=== PATIENT | male | born 1960 | race Caucasian/White ===

== ENCOUNTER 2017-03-23 05:33 | Emergency (ER) | payer OTHER ==
[2017-03-23 05:35] VITALS: BMI 31.3
[2017-03-23 05:51] VITALS: TEMP 98.1
[2017-03-23] MEDS ORDERED: Morphine 2 mg/ml ISec IVP STA (05:54)
--- NOTE | 2017-03-23 05:54 | ED PDOC ---
Arrival/HPI - General Chief Complaint: Back Pain Time Seen by Provider: 03/23/17 05:52 Historian: Patient - History of Present Illness Narrative History of Present Illness (Text): 03/23/17 05:52 Marisel Hinojosa is a 56 year old male, whose past medical history includes gastritis, who presents to the Emergency department complaining of right flank pain radiating to his abdomen for the past 10 days, worsening tonight. Patient also notes some constipation this morning. Patient states he was seen by his PMD for similar complaints yesterday and given prescriptions for outpatient imaging studies. Patient states pain worsened tonight and he came to the ER for further evaluation. Patient denies any fever, chills, chest pain, shortness of breath, nausea, vomiting, diarrhea, neck pain, headache, dizziness, or any other complaints. PMD: Dr. Tano Nina Time/Duration: > week (10 days) Symptom Onset: Gradual Symptom Course: Unchanged Activities at Onset: Light Context: Home Past Medical History - Provider Review Nursing Documentation Reviewed: Yes - Infectious Disease Hx of Infectious Diseases: None - Tetanus Immunization Tetanus Immunization: Unknown - Past Medical History Past Medical History: No Previous - Cardiac Hx Cardiac Disorders: No - Pulmonary Hx Respiratory Disorders: No - Neurological Hx Neurological Disorder: No - HEENT Hx HEENT Disorder: No - Renal Hx Renal Disorder: No - Endocrine/Metabolic Hx Endocrine Disorders: No - Hematological/Oncological Hx Blood Disorders: No - Integumentary Hx Dermatological Disorder: No - Musculoskeletal/Rheumatological Hx Back Pain: Yes - Gastrointestinal Hx Gastritis: Yes Hx Gastroesophageal Reflux: Yes - Genitourinary/Gynecological Hx Genitourinary Disorders: No - Psychiatric Hx Psychophysiologic Disorder: No Hx Substance Use: No - Surgical History Hx Tonsillectomy: Yes Other/Comment: Anal fisure - Anesthesia Hx Anesthesia: Yes Hx Anesthesia Reactions: No - Suicidal Assessment Feels Threatened In Home Enviroment: No Family/Social History - Physician Review Nursing Documentation Reviewed: Yes Family/Social History: Unknown Family HX Smoking Status: Never Smoked Hx Alcohol Use: No Hx Substance Use: No Hx Substance Use Treatment: No Allergies/Home Meds Allergies/Adverse Reactions: Allergies novalgine Allergy (Uncoded 03/23/17 05:52) ANAPHYLAXIS Home Medications: Home Meds Medication Instructions Recorded Confirmed Ibuprofen [Motrin] 600 mg PO PRN PRN 10/05/14 03/23/17 Omeprazole 40 mg PO DAILY 03/23/17 03/23/17 Review of Systems - Physician Review All systems were reviewed & negative as marked: Yes - Review of Systems Constitutional: Normal. absent: Fevers Eyes: Normal ENT: Normal Respiratory: Normal. absent: SOB, Cough Cardiovascular: Normal. absent: Chest Pain Gastrointestinal: Constipation. absent: Diarrhea, Nausea, Vomiting Genitourinary Male: absent: Dysuria, Frequency, Hematuria, Urinary Output Changes Musculoskeletal: Back Pain (+right lower back pain). absent: Neck Pain Skin: Normal. absent: Rash Neurological: Normal. absent: Headache, Dizziness Endocrine: Normal Hemo/Lymphatic: Normal Psychiatric: Normal Physical Exam Vital Signs Reviewed: Yes Vital Signs Temp Pulse Resp BP Pulse Ox 03/23/17 12:34 70 18 100/76 98 03/23/17 10:07 68 18 96/68 L 97 03/23/17 07:36 60 18 102/71 99 03/23/17 05:48 98.1 F 80 16 112/81 97 Temperature: Afebrile Blood Pressure: Normal Pulse: Regular Respiratory Rate: Normal Appearance: Positive for: Well-Appearing, Non-Toxic, Comfortable Pain Distress: None Mental Status: Positive for: Alert and Oriented X 3 - Systems Exam Head: Present: Atraumatic, Normocephalic Pupils: Present: PERRL Extroacular Muscles: Present: EOMI Conjunctiva: Present: Normal Mouth: Present: Moist Mucous Membranes Neck: Present: Normal Range of Motion Respiratory/Chest: Present: Clear to Auscultation, Good Air Exchange. No: Respiratory Distress, Accessory Muscle Use Cardiovascular: Present: Regular Rate and Rhythm, Normal S1, S2. No: Murmurs Abdomen: Present: Normal Bowel Sounds. No: Tenderness, Distention, Peritoneal Signs Back: Present: Normal Inspection Upper Extremity: Present: Normal Inspection. No: Cyanosis, Edema Lower Extremity: Present: Normal Inspection. No: Edema Neurological: Present: GCS=15, CN II-XII Intact, Speech Normal Skin: Present: Warm, Dry, Normal Color. No: Rashes Psychiatric: Present: Alert, Oriented x 3, Normal Insight, Normal Concentration Medical Decision Making ED Course and Treatment: 03/23/17 05:53 Impression: 56 year old male complaining of right flank pain radiating to his abdomen for 10 days. Differential Diagnosis included but are not limited to: renal colic vs. musculoskeletal pain Plan: -- CT Abdomen and Pelvis w/o contrast -- Labs -- Urinalysis -- IV fluids -- Zofran -- Morphine -- Reassess and disposition Progress Notes: - Lab Interpretations Lab Results: 03/23/17 06:00 03/23/17 06:00 Lab Results 03/23/17 08:00: Urine Color Yellow, Urine Appearance Clear, Urine pH 6.5, Ur Specific [place] 1.020, Urine Protein Negative, Urine Glucose (UA) Negative, Urine Ketones Negative, Urine Blood Negative, Urine Nitrate Negative, Urine Bilirubin Negative, Urine Urobilinogen 0.2, Ur Leukocyte Esterase Negative 03/23/17 06:00: Sodium 141, Potassium 4.3, Chloride 103, Carbon Dioxide 26, Anion Gap 16, BUN 19, Creatinine 1.1, Est GFR ( Amer) > 60, Est GFR (Non- Af Amer) > 60, Random Glucose 121 H, Calcium 8.9, Total Bilirubin 1.0, AST 24, ALT 49, Alkaline Phosphatase 82, Total Protein 7.0, Albumin 4.1, Globulin 2.9, Albumin/Globulin Ratio 1.4 03/23/17 06:00: WBC 3.6 L, RBC 4.95, Hgb 15.5, Hct 41.5 L, MCV 83.8, MCH 31.3, MCHC 37.3 H, RDW 12.2, Plt Count 76 L, MPV 8.9, Gran % 35.1 L, Lymph % (Auto) 51.9 H, [place] % (Auto) 8.3 H, Eos % (Auto) 4.1, Baso % (Auto) 0.6, Gran # 1.27 L , Lymph # 1.9, [place] # 0.3, Eos # 0.2, Baso # 0.02 - RAD Interpretation Radiology Orders: 03/23/17 05:53 ABD & PELVIS W/O PO OR IV CONT [CT] Stat 03/23/17 08:57 ABDOMEN COMPLETE [US] Stat - Medication Orders Current Medication Orders: Discontinued Medications Sodium Chloride (Sodium Chloride 0.9%) 1,000 mls @ 80 mls/hr IV .[id number] KASIE Last Admin: 03/23/17 06:10 Dose: 80 mls/hr eMAR Start Stop Document 03/23/17 06:10 JOL (Rec: 03/23/17 06:10 JOL [id number]) Intravenous Solution Start Date 03/23/17 Start Time 06:10 Morphine Sulfate (Morphine) 2 mg IVP STAT STA Stop: 03/23/17 05:55 Last Admin: 03/23/17 06:10 Dose: 2 mg MAR Pain Assessment Document 03/23/17 06:10 JOL (Rec: 03/23/17 06:11 JOL [id number]) Pain Reassessment Is this a pain reassessment? No Sleep Is patient sleeping during reassessment? No Presence of Pain Presence of Pain Yes Pain Scale Used Pain Scale Used Numeric Location Upper or Lower Lower Pain Location Body Site Back Description Intensity of Pain at present 7 Pain Behavior Restlessness Facial Grimacing Aggravating Factors ADL's Changing Position Alleviating Factors/Management Medication Techniques IVP Administration Document 03/23/17 06:10 JOL (Rec: 03/23/17 06:11 JOL [id number]) Charges for Administration # of IVP Administrations 1 Ondansetron HCl (Zofran Inj) 4 mg IVP STAT STA Stop: 03/23/17 05:56 Last Admin: 03/23/17 06:10 Dose: 4 mg IVP Administration Document 03/23/17 06:10 JOL (Rec: 03/23/17 06:10 JOL [id number]) Charges for Administration # of IVP Administrations 1 Tramadol HCl (Ultram) 50 mg PO STAT STA Stop: 03/23/17 11:24 Last Admin: 03/23/17 12:22 Dose: Not Given Non-Admin Reason: Patient Refused - Transfer of Care Patient signed out to Dr:: rhaat ct scan and dispo - Scribe Statement The provider has reviewed the documentation as recorded by the Lalo Weber Provider Scribe Attestation: All medical record entries made by the Scribe were at my direction and personally dictated by me. I have reviewed the chart and agree that the record accurately reflects my personal performance of the history, physical exam, medical decision making, and the department course for this patient. I have also personally directed, reviewed, and agree with the discharge instructions and disposition. Disposition/Present on Arrival - Present on Arrival Any Indicators Present on Arrival: No History of DVT/PE: No History of Uncontrolled Diabetes: No Urinary Catheter: No History of Decub. Ulcer: No History Surgical Site Infection Following: None - Disposition Have Diagnosis and Disposition been Completed?: Yes Diagnosis: Enlarged prostate, Abdominal pain Disposition: HOME/ ROUTINE Disposition Time: 07:00 Condition: GOOD Discharge Instructions (ExitCare): Abdominal Pain (ED), Back Pain (ED) Additional Instructions: Follow-up with Dr. Nina as directed, as well as with gastoenterologist and urologist. You have an enlarged prostate on your imaging studies. For any persistent or worsening pain, any rash, any chest pain or shortness of breath, any nausea or vomiting, any numbness or weakness, any bloody urine or stool, any difficulty urinating or moving bowels, any persistent or worsening of symptoms, get rechecked. Prescriptions: traMADol [Ultram] 50 mg PO BID PRN #10 tab PRN Reason: Pain, Severe (8-10) Referrals: Tim Nina MD [Family Provider] - Follow up with primary Yobany Purcell MD [Staff Provider] - Follow up with primary Forms: [employer] (Sami)
[2017-03-23] MEDS ORDERED: Sodium Chloride 0.9% 1,000 ML IV SCH ×2 (06:00)
[2017-03-23 06:20] LABS: BASO # 0.02 K/mm3 (0.0-2.0); BASO % 0.6 % (0.0-3.0); EOS # 0.2 (0.0-0.7); EOS % 4.1 % (1.5-5.0); GRAN # 1.27 (1.4-6.5); GRAN % 35.1 % (50.0-68.0); HEMATOCRIT 41.5 % (42.0-52.0); LYMPH # 1.9 (1.2-3.4); LYMPH % 51.9 % (22.0-35.0); MEAN CELL VOLUME 83.8 fl (80.0-105.0); MEAN CORPUSCULAR HEMOGLOBIN 31.3 pg (25.0-35.0); MEAN CORPUSCULAR HGB CONC 37.3 g/dl (31.0-37.0); MEAN PLATELET VOLUME 8.9 fl (7.0-11.0); MONO # 0.3 (0.1-0.6); MONO % 8.3 % (1.0-6.0); RED CELL DISTRIBUTION WIDTH 12.2 % (11.5-14.5); WHITE BLOOD COUNT 3.6 10^3/ul (4.5-11.0)
[2017-03-23 06:28] LABS: ALB/GLOB RATIO 1.4 (1.1-1.8); ALKALINE PHOSPHATASE 82 U/L (38-126); ALT/SGPT 49 U/L (7-56); AST/SGOT 24 U/L (17-59); BLOOD UREA NITROGEN 19 mg/dL (7-21); CALCIUM 8.9 mg/dL (8.4-10.5); CARBON DIOXIDE 26 mmol/L (21-33); CHLORIDE 103 mmol/L (95-110); GFR AFRICAN-AMERICAN > 60; GLUCOSE,RANDOM 121 mg/dL (70-110); POTASSIUM 4.3 mmol/L (3.6-5.0); SODIUM 141 mmol/L (132-148)
--- NOTE | 2017-03-23 07:57 | ED PDOC ---
Physical Exam Vital Signs Reviewed: Yes Vital Signs Temp Pulse Resp BP Pulse Ox 03/23/17 10:07 68 18 96/68 L 97 03/23/17 07:36 60 18 102/71 99 03/23/17 05:48 98.1 F 80 16 112/81 97 Temperature: Afebrile Blood Pressure: Normal Pulse: Regular Respiratory Rate: Normal Appearance: Positive for: Well-Appearing, Non-Toxic, Comfortable Pain Distress: None Mental Status: Positive for: Alert and Oriented X 3 Medical Decision Making ED Course and Treatment: 03/23/17 07:57 Case signed out to me by Dr. Alva. Pending CT abdomen and pelvis, reevaluation and final disposition. 03/23/17 08:44 CT Abdomen and Pelvis without intravenous contrast Creator : Cesar Delvalle MD FINDINGS: LOWER THORAX: Unremarkable. LIVER: Unremarkable. No gross lesion or ductal dilatation. GALLBLADDER AND BILE DUCTS: Unremarkable. PANCREAS: Unremarkable. No gross lesion or ductal dilatation. SPLEEN: Unremarkable. ADRENALS: Unremarkable. No mass. KIDNEYS AND URETERS: Unremarkable. No hydronephrosis. No solid mass. VASCULATURE: Unremarkable. No aortic aneurysm. BOWEL: Nonacute sigmoid diverticular changes appear mild. No obstruction. No gross mural thickening. APPENDIX: Unremarkable. Normal appendix. PERITONEUM: Unremarkable. No free fluid. No free air. LYMPH NODES: Unremarkable. No enlarged lymph nodes. BLADDER: Unremarkable. REPRODUCTIVE: Enlarged prostate gland noted. BONES: No acute fracture. IMPRESSION: Unremarkable non contrast enhanced CT of the abdomen and pelvis. No radiodense urolithiasis or obstructive uropathy bilaterally. Nonacute sigmoid diverticulosis. Enlarged prostate gland. 03/23/17 08:58 On reexamination, patient has mild right upper quadrant abdominal pain. No nausea or fever. CT scan report reviewed with patient. Limitations of this reviewed. Abdomen US ordered to further evaluate gallbladder. 03/23/17 11:30 Imaging studies and labs reviewed with patient and Dr. Nina. Patient with no peritoneal signs, no vesicular rash. Afebrile. CV stable. Plan to discharged with follow-up with PMD and GI. Follow-up plan reviewed with patient. 03/23/17 12:19 US abdomen- Creator : Allen Cuba MD Impression- Fatty infiltration of the liver. No evidence of cholelithiasis or cholecystitis. - Lab Interpretations Lab Results: 03/23/17 06:00 03/23/17 06:00 Lab Results 03/23/17 08:00: Urine Color Yellow, Urine Appearance Clear, Urine pH 6.5, Ur Specific [place] 1.020, Urine Protein Negative, Urine Glucose (UA) Negative, Urine Ketones Negative, Urine Blood Negative, Urine Nitrate Negative, Urine Bilirubin Negative, Urine Urobilinogen 0.2, Ur Leukocyte Esterase Negative 03/23/17 06:00: Sodium 141, Potassium 4.3, Chloride 103, Carbon Dioxide 26, Anion Gap 16, BUN 19, Creatinine 1.1, Est GFR ( Amer) > 60, Est GFR (Non- Af Amer) > 60, Random Glucose 121 H, Calcium 8.9, Total Bilirubin 1.0, AST 24, ALT 49, Alkaline Phosphatase 82, Total Protein 7.0, Albumin 4.1, Globulin 2.9, Albumin/Globulin Ratio 1.4 03/23/17 06:00: WBC 3.6 L, RBC 4.95, Hgb 15.5, Hct 41.5 L, MCV 83.8, MCH 31.3, MCHC 37.3 H, RDW 12.2, Plt Count 76 L, MPV 8.9, Gran % 35.1 L, Lymph % (Auto) 51.9 H, [place] % (Auto) 8.3 H, Eos % (Auto) 4.1, Baso % (Auto) 0.6, Gran # 1.27 L , Lymph # 1.9, [place] # 0.3, Eos # 0.2, Baso # 0.02 I have reviewed the lab results: Yes - RAD Interpretation Radiology Orders: 03/23/17 05:53 ABD & PELVIS W/O PO OR IV CONT [CT] Stat 03/23/17 08:57 ABDOMEN COMPLETE [US] Stat - Medication Orders Current Medication Orders: Sodium Chloride (Sodium Chloride 0.9%) 1,000 mls @ 80 mls/hr IV .[id number] KASIE Last Admin: 03/23/17 06:10 Dose: 80 mls/hr eMAR Start Stop Document 03/23/17 06:10 JOL (Rec: 03/23/17 06:10 JOL [id number]) Intravenous Solution Start Date 03/23/17 Start Time 06:10 Discontinued Medications Morphine Sulfate (Morphine) 2 mg IVP STAT STA Stop: 03/23/17 05:55 Last Admin: 03/23/17 06:10 Dose: 2 mg MAR Pain Assessment Document 03/23/17 06:10 JOL (Rec: 03/23/17 06:11 JOL [id number]) Pain Reassessment Is this a pain reassessment? No Sleep Is patient sleeping during reassessment? No Presence of Pain Presence of Pain Yes Pain Scale Used Pain Scale Used Numeric Location Upper or Lower Lower Pain Location Body Site Back Description Intensity of Pain at present 7 Pain Behavior Restlessness Facial Grimacing Aggravating Factors ADL's Changing Position Alleviating Factors/Management Medication Techniques IVP Administration Document 03/23/17 06:10 JOL (Rec: 03/23/17 06:11 JOL [id number]) Charges for Administration # of IVP Administrations 1 Ondansetron HCl (Zofran Inj) 4 mg IVP STAT STA Stop: 03/23/17 05:56 Last Admin: 03/23/17 06:10 Dose: 4 mg IVP Administration Document 03/23/17 06:10 JOL (Rec: 03/23/17 06:10 JOL [id number]) Charges for Administration # of IVP Administrations 1 Tramadol HCl (Ultram) 50 mg PO STAT STA Stop: 03/23/17 11:24 - Scribe Statement The provider has reviewed the documentation as recorded by the Lalo Patino Provider Scribe Attestation: All medical record entries made by the Scribe were at my direction and personally dictated by me. I have reviewed the chart and agree that the record accurately reflects my personal performance of the history, physical exam, medical decision making, and the department course for this patient. I have also personally directed, reviewed, and agree with the discharge instructions and disposition. Disposition/Present on Arrival - Present on Arrival Any Indicators Present on Arrival: No History of DVT/PE: No History of Uncontrolled Diabetes: No Urinary Catheter: No History of Decub. Ulcer: No History Surgical Site Infection Following: None - Disposition Have Diagnosis and Disposition been Completed?: Yes Diagnosis: Enlarged prostate, Abdominal pain Disposition: HOME/ ROUTINE Disposition Time: 11:31 Patient Plan: Discharge Patient Problems: Current Active Problems Problem Status Onset Abdominal pain Acute Enlarged prostate Acute Condition: GOOD Discharge Instructions (ExitCare): Abdominal Pain (ED), Back Pain (ED) Additional Instructions: Follow-up with Dr. Nina as directed, as well as with gastoenterologist and urologist. You have an enlarged prostate on your imaging studies. For any persistent or worsening pain, any rash, any chest pain or shortness of breath, any nausea or vomiting, any numbness or weakness, any bloody urine or stool, any difficulty urinating or moving bowels, any persistent or worsening of symptoms, get rechecked. Referrals: Tim Nina MD [Family Provider] - Follow up with primary Yobany Purcell MD [Staff Provider] - Follow up with primary Forms: [employer] (Uzbek)
[2017-03-23 08:34] LABS: PH,URINE 6.5 (4.7-8.0); URINE BILIRUBIN NEGATIVE (NEGATIVE); URINE BLOOD NEGATIVE (NEGATIVE); URINE GLUCOSE (UA) NEGATIVE (NEGATIVE); URINE KETONE NEGATIVE (NEGATIVE); URINE LEUKOCYTE ESTERASE NEGATIVE Leu/uL (NEGATIVE); URINE PROTEIN NEGATIVE mg/dL (<30 mg/dL); URINE UROBILINOGEN 0.2 E.U./dL (<1 E.U./dL)
[2017-03-23 08:35] LABS: URINE APPEARANCE CLEAR (CLEAR); URINE COLOR YELLOW (YELLOW)
--- NOTE | 2017-03-23 08:42 | CT ---
PROCEDURE: CT Abdomen and Pelvis without intravenous contrast HISTORY: rt flank pain COMPARISON: None. TECHNIQUE: Helical CT of the abdomen and pelvis was performed without oral or intravenous contrast as per referring physician request .. Contrast Dose: None Radiation dose: Total exam DLP = 879.95 mGy-cm. This CT exam was performed using one or more of the following dose reduction techniques: Automated exposure control, adjustment of the mA and/or kV according to patient size, and/or use of iterative reconstruction technique. FINDINGS: LOWER THORAX: Unremarkable. LIVER: Unremarkable. No gross lesion or ductal dilatation. GALLBLADDER AND BILE DUCTS: Unremarkable. PANCREAS: Unremarkable. No gross lesion or ductal dilatation. SPLEEN: Unremarkable. ADRENALS: Unremarkable. No mass. KIDNEYS AND URETERS: Unremarkable. No hydronephrosis. No solid mass. VASCULATURE: Unremarkable. No aortic aneurysm. BOWEL: Nonacute sigmoid diverticular changes appear mild. No obstruction. No gross mural thickening. APPENDIX: Unremarkable. Normal appendix. PERITONEUM: Unremarkable. No free fluid. No free air. LYMPH NODES: Unremarkable. No enlarged lymph nodes. BLADDER: Unremarkable. REPRODUCTIVE: Enlarged prostate gland noted. BONES: No acute fracture. OTHER FINDINGS: None. IMPRESSION: Unremarkable non contrast enhanced CT of the abdomen and pelvis. No radiodense urolithiasis or obstructive uropathy bilaterally. Nonacute sigmoid diverticulosis. Enlarged prostate gland.
[2017-03-23 09:07] VITALS: RESP 18
[2017-03-23 12:35] VITALS: BP 100/76; PULSE 70; O2SAT 98
--- NOTE | 2017-03-23 13:12 | US ---
HISTORY: upper abdominal pain COMPARISON: None. TECHNIQUE: Sonographic evaluation of the abdomen. FINDINGS: LIVER: Measures 17.0 cm. Diffusely increased echogenicity of the liver parenchyma. No mass. No intrahepatic bile duct dilatation. Normal hepatopetal portal venous flow is demonstrated. GALLBLADDER: Unremarkable. No gallstones. COMMON BILE DUCT: Measures 3 mm. No stones. No dilatation. PANCREAS: Unremarkable as visualized. No mass. No ductal dilatation. RIGHT KIDNEY: Measures 11.1cm. Normal echogenicity. No calculus, mass, or hydronephrosis. LEFT KIDNEY: Measures 12.6cm. Normal echogenicity. No calculus, mass, or hydronephrosis. SPLEEN: Normal in size and contour. No mass. AORTA: No aneurysmal dilatation. IVC: Unremarkable. OTHER FINDINGS: None. IMPRESSION: Fatty infiltration of the liver. No evidence of cholelithiasis or cholecystitis.
== END 2017-03-23 12:43 | disposition home or self-care (01) ==
LOC: ED 05:33
DX: N40.0 Benign prostatic hyperplasia without lower urinary tract symptoms (principal); R10.9 Unspecified abdominal pain; K21.9 Gastro-esophageal reflux disease without esophagitis
CPT/HCPCS: 74176; 76700; 80053; 81003; 85025; 96374; 96375; 99284; J2270; J2405; J7040

== ENCOUNTER 2018-08-12 00:34 | Emergency (ER) | payer MEDICAID, OTHER ==
[2018-08-12 00:35] VITALS: BMI 31.3
[2018-08-12] MEDS ORDERED: Sodium Chloride 0.9% 1,000 ML IV ONE (01:09)
--- NOTE | 2018-08-12 01:19 | ED PDOC ---
Arrival/HPI - General Chief Complaint: Abdominal Pain Time Seen by Provider: 08/12/18 00:41 Historian: Patient - History of Present Illness Narrative History of Present Illness (Text): 08/12/18 01:14 57 year old male, with past medical history of gastritis, presents to emergency department complaining of epigastric abdominal pain radiating up to throat and into chest since earlier today at 7 pm. Patient states this pain occurred after eating some tangerines, and he also states that he drank wine two hours ago which he normally does not do. Patient reports three episodes of non-dark, non- bilious vomiting with associated burning chest pain radiating from stomach to throat. Patient states he attempted to take pepcid but vomited it up. Pt endorses that his pain feels exactly alike his previous gastritis. Patient denies any shortness of breath, urinary complaints, rashes, trauma, falls, or any other complaints. He denies any crushing chest pain or pressure like pain to the chest. No pleuritic chest pain. No back pain. No fever, chills or night sweats. No urinary complaints. No dark or bloody stool. No constipation or diarrhea. 08/12/18 05:24 Time/Duration: 4-6 hours (7:00 ) Symptom Onset: Gradual Symptom Course: Unchanged Activities at Onset: Light Context: Home Past Medical History - Provider Review Nursing Documentation Reviewed: Yes - Infectious Disease Hx of Infectious Diseases: None - Tetanus Immunization Tetanus Immunization: Unknown - Past Medical History Past Medical History: No Previous - Cardiac Hx Cardiac Disorders: No - Pulmonary Hx Respiratory Disorders: No - Neurological Hx Neurological Disorder: No - HEENT Hx HEENT Disorder: No - Renal Hx Renal Disorder: No - Endocrine/Metabolic Hx Endocrine Disorders: No - Hematological/Oncological Hx Blood Disorders: No - Integumentary Hx Dermatological Disorder: No - Musculoskeletal/Rheumatological Hx Back Pain: Yes - Gastrointestinal Hx Gastritis: Yes Hx Gastroesophageal Reflux: Yes - Genitourinary/Gynecological Hx Genitourinary Disorders: No - Psychiatric Hx Psychophysiologic Disorder: No Hx Substance Use: No - Surgical History Hx Tonsillectomy: Yes Other/Comment: Anal fisure - Anesthesia Hx Anesthesia: Yes Hx Anesthesia Reactions: No - Suicidal Assessment Feels Threatened In Home Enviroment: No Family/Social History - Physician Review Nursing Documentation Reviewed: Yes Family/Social History: Unknown Family HX Smoking Status: Never Smoked Hx Alcohol Use: No Hx Substance Use: No Hx Substance Use Treatment: No Allergies/Home Meds Allergies/Adverse Reactions: Allergies novalgine Allergy (Uncoded 08/12/18 00:40) ANAPHYLAXIS Home Medications: Home Meds Medication Instructions Recorded Confirmed RX: Omeprazole 40 mg PO DAILY 03/23/17 08/12/18 Review of Systems - Physician Review All systems were reviewed & negative as marked: Yes - Review of Systems Constitutional: absent: Fatigue, Weight Change, Fevers, Night Sweats Eyes: absent: Vision Changes, Photophobia ENT: absent: Tinnitus Respiratory: absent: SOB, Cough Cardiovascular: Chest Pain (radiating from stomach to throat ). absent: Palpitations, Edema, Calf Pain, [place], Orthopnea, Syncope Gastrointestinal: Abdominal Pain (epigastric abdominal pain radiating up to throat into chest ), Nausea, Vomiting. absent: Stool Changes, Constipation, Diarrhea, Hematochezia, Hematemesis Genitourinary Male: absent: Dysuria, Frequency, Hematuria, Urinary Output Changes Musculoskeletal: absent: Arthralgias, Back Pain, Neck Pain Skin: absent: Rash Neurological: absent: Headache, Dizziness, Focal Weakness Physical Exam Vital Signs Reviewed: Yes Vital Signs Temp Pulse Resp BP Pulse Ox 08/12/18 00:35 97.6 F 61 18 133/55 L 98 Temperature: Afebrile Blood Pressure: Normal Pulse: Regular Respiratory Rate: Normal Appearance: Positive for: Well-Appearing, Non-Toxic, Comfortable Pain Distress: None Mental Status: Positive for: Alert and Oriented X 3 - Systems Exam Head: Present: Atraumatic, Normocephalic Pupils: Present: PERRL Extroacular Muscles: Present: EOMI Conjunctiva: Present: Normal Ears: Present: Normal, NORMAL TM Mouth: Present: Moist Mucous Membranes Pharnyx: Present: Normal. No: ERYTHEMA, EXUDATE, TONSILS ENLARGED, Peritonsilar Swelling, Uvular Deviation, Muffled/Hoarse Voice, Strider Neck: Present: Normal Range of Motion. No: Meningeal Signs, MIDLINE TENDERNESS Respiratory/Chest: Present: Clear to Auscultation, Good Air Exchange. No: Respiratory Distress, Accessory Muscle Use Cardiovascular: Present: Regular Rate and Rhythm, Normal S1, S2. No: Murmurs Abdomen: Present: Tenderness (epigastric tenderness ). No: Distention, Peritoneal Signs Back: Present: Normal Inspection. No: CVA Tenderness, Midline Tenderness Upper Extremity: Present: Normal Inspection, NORMAL PULSES, Neurovascularly Intact. No: Cyanosis, Edema Lower Extremity: Present: Normal Inspection, NORMAL PULSES, Neurovascularly Intact. No: Edema Neurological: Present: GCS=15, CN II-XII Intact, Speech Normal, Motor Func Grossly Intact Skin: Present: Warm, Dry, Normal Color. No: Rashes Psychiatric: Present: Alert, Oriented x 3, Normal Insight, Normal Concentration Medical Decision Making ED Course and Treatment: 08/12/18 01:20 Impression: 57 year old male presents to emergency department complaining of epigastric abdominal pain radiating up to throat and chest since 7 pm. Non-cardiac like chest pain. No RF for heart disease. Pt notes this pain feels exactly like previous gastritis pain. EKG unremarkable. Will seek x1 trop and imaging. Likely alcohol gastritis type pain. Plan: -- EKG -- Labs -- Chest X-ray -- Pepcid -- IV Fluids -- Zofran -- US Gallbladder -- Reassess and disposition Prior Visits: Notes and results from previous visits were reviewed. Progress Notes: 08/12/18 01:22 EKG: Ordered, reviewed, and independently interpreted the EKG. Rate : 62 BPM Rhythm : NSR Interpretation : No stemi 08/12/18 03:10 CT Abdomen/Pelvis, reviewed by radiologist: IMPRESSION: No acute intra-abdominal or pelvic abnormality. Electronically signed on Aug 12, 2018 3:08:30 AM EST by: Cesar Kay M.D., MBA Certified By ABR & CBC[employer] Fellowship Trained MRI and CT Specialist 08/12/18 03:34 US Gallbladder, reviewed by radiologist: IMPRESSION: Unremarkable right upper quadrant ultrasound. Electronically signed on Aug 12, 2018 3:54:01 AM EST by: Cesar Kay M.D., MBA Certified By ABR & CBC[employer] Fellowship Trained MRI and CT Specialist 08/12/18 04:34 pt notes improvment of symptoms, but pt is seeking maalox for the road. trop unremarkable, ekg unremarkable epigastric area non-ttp, I endorsed decreasing etoh usage. he is agreeable . Tolerated maalox well, no n/v, clear for d/c home with return indications and followup. Pt notes he has pepcid at home - RAD Interpretation Radiology Orders: 08/12/18 01:09 CHEST TWO VIEWS (PA/LAT) [RAD] Stat GALLBLADDER & COMMON DUCT [US] Stat - Medication Orders Current Medication Orders: Famotidine (Pepcid) 20 mg IVP STAT STA Stop: 08/12/18 01:11 Sodium Chloride (Sodium Chloride 0.9%) 1,000 mls @ 250 mls/hr IV .Q4H ONE Stop: 08/12/18 05:08 Ondansetron HCl (Zofran Inj) 4 mg IVP STAT STA Stop: 08/12/18 01:10 - Scribe Statement The provider has reviewed the documentation as recorded by the Scribe Bhavana Sanchez All medical record entries made by the Scribe were at my direction and personally dictated by me. I have reviewed the chart and agree that the record accurately reflects my personal performance of the history, physical exam, medical decision making, and the department course for this patient. I have also personally directed, reviewed, and agree with the discharge instructions and disposition. Disposition/Present on Arrival - Present on Arrival Any Indicators Present on Arrival: No History of DVT/PE: No History of Uncontrolled Diabetes: No Urinary Catheter: No History of Decub. Ulcer: No History Surgical Site Infection Following: None - Disposition Have Diagnosis and Disposition been Completed?: Yes Diagnosis: Gastritis Disposition: HOME/ ROUTINE Disposition Time: 04:35 Condition: GOOD Discharge Instructions (ExitCare): Gastritis (DC) Additional Instructions: ESTELLA GHOTRA, thank you for letting us take care of you today. Your provider was Franklin Serrano and you were treated for ABD PAIN. The emergency medical care you received today was directed at your acute symptoms. If you were prescribed any medication, please fill it and take as directed. It may take several days for your symptoms to resolve. Return to the Emergency Department if your symptoms worsen, do not improve, or if you have any other problems. Please contact your doctor or call one of the physicians/clinics you have been referred to that are listed on the Patient Visit Information form that is included in your discharge packet. Bring any paperwork you were given at discharge with you along with any medications you are taking to your follow up visit. Our treatment cannot replace ongoing medical care by a primary care provider outside of the emergency department. Thank you for allowing the [facility] team to be part of your care today. If you had an X-Ray or CT scan: A Radiologist will review the ED reading if any change in treatment is needed we will contact you. If you had a blood, urine, or wound culture: It will take several days for the results, if any change in treatment is needed we will contact you. If you had an STI test: It will take 48 hours for the results. Please call after 1 week if you have not heard back. Referrals: Tim Nina MD [Primary Care Provider] - Follow up with primary Rhett Darden MD [Staff Provider] - Follow up with primary Crystal Ojeda MD [Medical Doctor] - Follow up with primary [facility] [place] [Outside] - Follow up with primary [facility] [Outside] - Follow up with primary [facility] [place] [Outside] - Follow up with primary Forms: [facility] (Indonesian)
[2018-08-12 01:29] LABS: ALB/GLOB RATIO 1.4 (1.1-1.8); ALBUMIN 4.1 g/dL (3.0-4.8); ALT/SGPT 26 U/L (7-56); AST/SGOT 21 U/L (17-59); BLOOD UREA NITROGEN 19 mg/dL (7-21); CALCIUM 9.3 mg/dL (8.4-10.5); GFR NON-AFRICAN AMERICAN > 60; LIPASE 140 U/L (23-300)
[2018-08-12 01:46] LABS: TROPONIN I < 0.01 ng/mL
[2018-08-12 02:03] LABS: VENOUS BLOOD GAS BASE EXCESS 2.9 mmol/L (0.0-2.0); VENOUS BLOOD GAS PO2 149 mm/Hg (30-55); VENOUS BLOOD PH 7.35 (7.32-7.43)
[2018-08-12] MEDS ORDERED: Iohexol 350 MG/100 ML VIAL ONE (02:10)
[2018-08-12 02:13] LABS: BASO # 0.02 K/mm3 (0.0-2.0); BASO % 0.5 % (0.0-3.0); EOS # 0.1 (0.0-0.7); HEMOGLOBIN 14.7 g/dL (14.0-18.0); LYMPH # 2.1 (1.2-3.4); LYMPH % 51.2 % (22.0-35.0); MEAN CELL VOLUME 87.5 fl (80.0-105.0); MEAN CORPUSCULAR HEMOGLOBIN 31.2 pg (25.0-35.0); MEAN CORPUSCULAR HGB CONC 35.7 g/dl (31.0-37.0); MONO # 0.4 (0.1-0.6); MONO % 9.9 % (1.0-6.0); RBC 4.71 10^6/uL (3.5-6.1); RED CELL DISTRIBUTION WIDTH 12.5 % (11.5-14.5); WHITE BLOOD COUNT 4.1 10^3/uL (4.5-11.0)
[2018-08-12] MEDS ORDERED: Alum-Mag Hydrox-Simethicone Susp (30 mL) PO STA (04:33)
[2018-08-12 04:56] VITALS: BP 114/76; PULSE 71; RESP 16; TEMP 98.2; O2SAT 100
--- NOTE | 2018-08-12 08:44 | CARD ---
APPROVED REPORT Date of service: 08/12/2018 EKG Measurement Heart [id number] ID [id number] <Conclusion> Normal sinus rhythm Nonspecific ST abnormality Abnormal ECG
--- NOTE | 2018-08-12 12:55 | CT ---
Date of service: 08/12/2018 PROCEDURE: CT Abdomen and Pelvis.. HISTORY: Epigastric pain COMPARISON: Comparison made with prior study 03/23/2017 TECHNIQUE: Contiguous helical/transaxial images of the abdomen and pelvis. Oral contrast was administered. No IV contrast given. Coronal and Sagittal reformats generated. Radiation dose: Total exam DLP = 677.93 mGy-cm. This CT exam was performed using one or more of the following dose reduction techniques: Automated exposure control, adjustment of the mA and/or kV according to patient size, and/or use of iterative reconstruction technique. FINDINGS: LOWER THORAX: Mild passive/dependent type atelectasis both posterior lower lung tubbs. No acute consolidation. No evidence of effusion or basilar pneumothorax. Heart size within range of normal. No significant pericardial effusion. Suspect small hiatal hernia. LIVER: Liver is upper limits of normal measuring over 18 cm in CC dimension. Moderate fatty hepatic infiltration. No obvious hepatic masses collections or calcifications. Portal and splenic veins are opacified. GALLBLADDER AND BILE DUCTS: Unremarkable. PANCREAS: Pancreas appears slightly atrophic and fatty replaced. No obvious pancreatic mass collection or calcification. SPLEEN: Unremarkable. No splenomegaly. ADRENALS: Normal-appearing appendix. KIDNEYS AND URETERS: Kidneys demonstrate symmetric nephrograms. No evidence of nephrolithiasis or hydronephrosis. There is a small approximately 9.4 mm elliptical shaped low-attenuation arising from the lateral cortex mid to lower pole left kidney that probably represents hyperdense cyst. BLADDER: Urinary bladder is incompletely distended which in part accounts for thick-walled appearance. Muscular hypertrophy presumably contributes. Correlation with urinalysis recommended to exclude cystitis. REPRODUCTIVE: Prostate gland measures approximately 4.9 cm in transverse dimension. APPENDIX: . Normal appendix BOWEL: Evaluation of the bowel is somewhat limited due to the lack of oral contrast material. The stomach is partially distended with food debris liquid and air.. There appears to be some wall thickening of the distal stomach/pyloric region extending into the proximal duodenum which may be due to the peristalsing wave however the possibility of some localized inflammatory process not completely excluded. Clinical correlation recommended. Visualized loops of small bowel exhibit normal contour and caliber. No evidence of acute mechanical small bowel obstruction. Note however that there does appear to be some fecalized content within several loops of small bowel suggesting stasis. Clinical correlation recommended. Moderate amount of stool seen throughout the large bowel consistent with mild constipation PERITONEUM: Unremarkable. No fluid collection. No free air. Small fat containing umbilical hernia. Small fat containing bilateral inguinal hernias LYMPH NODES: Unremarkable. No enlarged lymph nodes. VASCULATURE: Unremarkable. No aortic aneurysm. No significant aortic atherosclerotic calcification or mural plaque present. BONES: Mild multilevel degenerative spondylosis of the lower thoracic and lumbar spine. OTHER FINDINGS: None. IMPRESSION: Of borderline/mild hepatomegaly with fatty infiltration. Findings consistent with mild fecal retention/constipation. Slight wall thickening of the distal stomach/pyloric region likely due to peristalsis however inflammatory process involving the distal gastric wall not excluded. Clinical correlation recommended. Note that this report was placed in PA review folder for follow up. For
--- NOTE | 2018-08-12 16:01 | RAD ---
Date of service: 08/12/2018 HISTORY: cp COMPARISON: Comparison chest dated 01/31/2015 TECHNIQUE: Chest PA and lateral FINDINGS: LUNGS: Minimal bibasilar atelectasis. PLEURA: No significant pleural effusion identified. No pneumothorax apparent. CARDIOVASCULAR: No aortic atherosclerotic calcification present. Normal cardiac size. No pulmonary vascular congestion. OSSEOUS STRUCTURES: No significant abnormalities. VISUALIZED UPPER ABDOMEN: Normal. OTHER FINDINGS: None. IMPRESSION: Minimal bibasilar atelectasis
--- NOTE | 2018-08-12 18:26 | US ---
Date of service: 08/12/2018 HISTORY: epigastric abd pain COMPARISON: Comparison made with prior ultrasound dated 03/15/2017. Correlation also made with CT scan abdomen pelvis obtained earlier same day TECHNIQUE: Sonographic evaluation of the right upper quadrant of the abdomen. FINDINGS: LIVER: Measures 18.1 cm in length. Smooth contour however increased echotexture consistent with fatty infiltration.. No mass. No intrahepatic bile duct dilatation. GALLBLADDER: Unremarkable. No gallstones. No pericholecystic fluid collections no reported sonographic Pugh sign. COMMON BILE DUCT: Measures 5.8 mm. No stones. No dilatation. PANCREAS: Pancreas not visualized due to arm body habitus and bowel gas RIGHT KIDNEY: Measures 11.6 x 4.7 x 5.1 cm in length. Normal echogenicity. No calculus, mass, or hydronephrosis. AORTA: No aneurysmal dilatation. IVC: Unremarkable. OTHER FINDINGS: None . IMPRESSION: Limited study as above. Liver is upper limits of normal/borderline enlarged. Moderate fatty hepatic infiltration.
== END 2018-08-12 04:56 | disposition home or self-care (01) ==
LOC: ED 00:34
DX: K29.70 Gastritis, unspecified, without bleeding (principal); K21.9 Gastro-esophageal reflux disease without esophagitis
CPT/HCPCS: 71046; 74177; 76705; 80053; 82803; 83690; 84484; 85025; 93005; 96374; 96375; 99284; J2405; J7030; Q9967

== ENCOUNTER 2018-08-12 09:29 | Inpatient (IN) | payer MEDICAID ==
[2018-08-12 09:29] VITALS: BMI 31.3
--- NOTE | 2018-08-12 09:54 | ED PDOC ---
Arrival/HPI - General Chief Complaint: Abdominal Pain Time Seen by Provider: 08/12/18 09:33 Historian: Patient - History of Present Illness Narrative History of Present Illness (Text): 08/12/18 09:51 57 year old male, whose past medical history includes gastritis, presents to the emergency department complaining of epigastric abdominal pain radiating to the back that began last night. Patient reports the pain is constant and is unable to sleep. Patient also reports episodes of vomiting yesterday, but denies any episodes of vomiting today. He reports he took Xanax to help him sleep with no relief. Patient reports the pain is similar to his pervious gastritis episode. Patient was discharged earlier with a negative CT of the Abdomen and pelvis and negative gallbladder Ultrasound. Patient reports nausea, but denies any fever, chills, chest pain, shortness of breath, diarrhea, urinary symptoms, back pain, neck pain, headache, dizziness, or any other complaints. PMD: Dr. Nina Symptom Onset: Gradual Symptom Course: Unchanged Activities at Onset: Light Context: Home Past Medical History - Provider Review Nursing Documentation Reviewed: Yes - Infectious Disease Hx of Infectious Diseases: None - Tetanus Immunization Tetanus Immunization: Unknown - Past Medical History Past Medical History: No Previous - Cardiac Hx Cardiac Disorders: No - Pulmonary Hx Respiratory Disorders: No - Neurological Hx Neurological Disorder: No - HEENT Hx HEENT Disorder: No - Renal Hx Renal Disorder: No - Endocrine/Metabolic Hx Endocrine Disorders: No - Hematological/Oncological Hx Blood Disorders: No - Integumentary Hx Dermatological Disorder: No - Musculoskeletal/Rheumatological Hx Musculoskeletal Disorders: Yes Hx Back Pain: Yes - Gastrointestinal Hx Gastrointestinal Disorders: Yes Hx Gastritis: Yes Hx Gastroesophageal Reflux: Yes - Genitourinary/Gynecological Hx Genitourinary Disorders: No - Psychiatric Hx Psychophysiologic Disorder: No Hx Substance Use: No - Surgical History Hx Tonsillectomy: Yes Other/Comment: Anal fisure - Anesthesia Hx Anesthesia: Yes Hx Anesthesia Reactions: No - Suicidal Assessment Feels Threatened In Home Enviroment: No Family/Social History - Physician Review Nursing Documentation Reviewed: Yes Family/Social History: No Known Family HX Smoking Status: Never Smoked Hx Alcohol Use: No Hx Substance Use: No Hx Substance Use Treatment: No Allergies/Home Meds Allergies/Adverse Reactions: Allergies novalgine Allergy (Uncoded 08/12/18 09:31) ANAPHYLAXIS Home Medications: Home Meds Medication Instructions Recorded Confirmed Omeprazole 40 mg PO DAILY 03/23/17 08/12/18 Review of Systems - Physician Review All systems were reviewed & negative as marked: Yes - Review of Systems Constitutional: absent: Fevers, Other (chills) Respiratory: absent: SOB Cardiovascular: absent: Chest Pain Gastrointestinal: Abdominal Pain, Nausea, Vomiting Genitourinary Male: absent: Dysuria, Frequency, Hematuria Musculoskeletal: Back Pain. absent: Neck Pain Neurological: absent: Headache, Dizziness Physical Exam Vital Signs Reviewed: Yes Vital Signs Temp Pulse Resp BP Pulse Ox 08/12/18 09:32 97.5 F L 68 16 103/65 97 Temperature: Afebrile Blood Pressure: Normal Pulse: Regular Respiratory Rate: Normal Appearance: Positive for: Well-Appearing, Non-Toxic, Comfortable Pain Distress: None Mental Status: Positive for: Alert and Oriented X 3 - Systems Exam Head: Present: Atraumatic, Normocephalic Pupils: Present: PERRL Extroacular Muscles: Present: EOMI Conjunctiva: Present: Normal Mouth: Present: Moist Mucous Membranes Neck: Present: Normal Range of Motion Respiratory/Chest: Present: Clear to Auscultation, Good Air Exchange. No: Respiratory Distress, Accessory Muscle Use Cardiovascular: Present: Regular Rate and Rhythm, Normal S1, S2. No: Murmurs Abdomen: Present: Tenderness (epigastric tenderness). No: Distention, Peritoneal Signs, Guarding Back: Present: Normal Inspection Upper Extremity: Present: Normal Inspection. No: Cyanosis, Edema Lower Extremity: Present: Normal Inspection. No: Edema Neurological: Present: GCS=15, CN II-XII Intact, Speech Normal Skin: Present: Warm, Dry, Normal Color. No: Rashes Psychiatric: Present: Alert, Oriented x 3, Normal Insight, Normal Concentration Medical Decision Making ED Course and Treatment: 08/12/18 09:51 Impression: 57 year old male presents complaining of epigastric abdominal pain secondary to his gastritis associated with nausea and episodes of vomiting yesterday. Differential Diagnosis included but are not limited to: Gastritis VS intractable pain Plan: -- Protonix, IV Fluids, Toradol -- Reassess and disposition Prior Visits: Notes and results from previous visits were reviewed. Progress Notes: EKG shows NSR at 71 BPM. Interpreted by me. 08/12/18 03:10 CT Abdomen/Pelvis, reviewed by radiologist: IMPRESSION: No acute intra-abdominal or pelvic abnormality. Electronically signed on Aug 12, 2018 3:08:30 AM EST by: Cesar Kay M.D., MBA Certified By ABR & CBCCT Fellowship Trained MRI and CT Specialist 08/12/18 03:34 US Gallbladder, reviewed by radiologist: IMPRESSION: Unremarkable right upper quadrant ultrasound. Electronically signed on Aug 12, 2018 3:54:01 AM EST by: Cesar Kay M.D., MBA Certified By ABR & CBCCT Fellowship Trained MRI and CT Specialist 08/12/18 10:[address] Nina who is aware and agrees with the plan. Accepts patient into his service. Requests GI Dr. Crocker and surgery Dr. Greer for consult. - Scribe Statement The provider has reviewed the documentation as recorded by the Lalo Levy Provider Scribe Attestation: All medical record entries made by the Scribe were at my direction and personally dictated by me. I have reviewed the chart and agree that the record accurately reflects my personal performance of the history, physical exam, medical decision making, and the department course for this patient. I have also personally directed, reviewed, and agree with the discharge instructions and disposition. Disposition/Present on Arrival - Present on Arrival Any Indicators Present on Arrival: No History of DVT/PE: No History of Uncontrolled Diabetes: No Urinary Catheter: No History of Decub. Ulcer: No History Surgical Site Infection Following: None - Disposition Have Diagnosis and Disposition been Completed?: Yes Diagnosis: Gastritis, Intractable abdominal pain Disposition Time: 10:03 Patient Plan: Observation Condition: FAIR
[2018-08-12] MEDS ORDERED: Sodium Chloride 0.9% 1,000 ML IV SCH ×2 (10:00→14:08)
--- NOTE | 2018-08-12 13:37 | CP.PCM.CON ---
History of Present Illness - History of Present Illness History of Present Illness: General Surgery Consult Re: intractable abdominal pain HPI: 57M presented to ED complaining of epigastric abdominal pain radiating to the back that began last night. Pain was constant and prevented him from sleeping. Pain was associated with multiple episodes of yellow NBNB emesis yesterday. He has a hx of gastritis for which he takes protonix multiple times a week. He was discharged earlier after CT abd/pelvis and GB ultrasound were without surgical pathology. He says this pain was similar to his gastritis pain but more severe. Currently, pt is sitting in bed comfortably and states the abdominal pain has improved. Denies F/C, N/V, change in bowel or bladder habits, SOB and admits to only mild residual pain in the epigastrium and LUQ on palpation. Pt states that he is ready to go home today. PMH: Gastritis, GERD, Back pain, Anal fissures PSH: Tonsillectomy (40 years ago), Anal fissures (25 years ago), Varicocele FH: Denies SH: No tobacco or drug use, rare EtOH use All: Novalgine allergy anaphylaxis Home Meds: Omeprazole 40mg PO daily, occasionally takes viagra and xanax Review of Systems - Review of Systems All systems: reviewed and no additional remarkable complaints except (as per HPI) Past Patient History - Infectious Disease Hx of Infectious Diseases: None - Tetanus Immunizations Tetanus Immunization: Unknown - Past Social History Smoking Status: Never Smoked - CARDIAC Hx Cardiac Disorders: No Hx Angina: No Hx Cardia Arrhythmia: No Hx Circulatory Problems: No Hx Congestive Heart Failure: No Hx Heart Murmur: No Hx Heart Transplant: No Hx Hypercholesterolemia: No Hx Hypertension: No Hx Internal Defibrillator: No Hx Mitral Valve Prolapse: No Hx Pacemaker: No Hx Peripheral Edema: No Hx Peripheral Vascular Disease: No - PULMONARY Hx Respiratory Disorders: No Hx Asthma: No Hx Bronchitis: No Hx Chronic Obstructive Pulmonary Disease (COPD): No Hx Emphysema: No Hx Pneumonia: No Hx Respiratory Aspiration: No Hx Respiratory Tract Infection: No Hx Sleep Apnea: No Hx Tuberculosis: No - NEUROLOGICAL Hx Neurological Disorder: No Hx Alzheimer's Disease: No HX Cerebrovascular Accident: No Hx Dementia: No Hx Dizziness: No Hx Meningitis: No Hx Migraine: No Hx Parkinson's Disease: No Hx Seizures: No Hx Transient Ischemic Attacks (TIA): No - HEENT Hx HEENT Problems: No Hx Blind: No Hx Cataracts: No Hx Deafness: No Hx Difficulty Chewing: No Hx Epistaxis: No Hx Glaucoma: No Hx Macular Degeneration: No - RENAL Hx Chronic Kidney Disease: No Hx Dialysis: No Hx Kidney Stones: No Hx Neurogenic Bladder: No Hx Pyelonephritis: No Hx Renal (Kidney) Cancer: No Hx Renal Failure: No - ENDOCRINE/METABOLIC Hx Endocrine Disorders: No Hx Adrenal Cancer: No Hx Diabetes Insipidus: No Hx Diabetes Mellitus Type 1: No Hx Diabetes Mellitus Type 2: No Hx Hyperthyroidism: No Hx Hypothyroidism: No Hx Systemic Lupus Erythematosus: No - HEMATOLOGICAL/ONCOLOGICAL Hx Blood Disorders: No Hx AIDS: No Hx Anemia: No Hx Cancer: No Hx Chemotherapy: No Hx Cirrhosis: No Hx Hemophilia: No Hx Hepatitis A: No Hx Hepatitis B: No Hx Hepatitis C: No Hx Human Immunodeficiency Virus (HIV): No Hx Metastesis: No Hx Shingles: No Hx Sickle Cell Disease: No Hx Unexplained Bleeding: No - INTEGUMENTARY Hx Dermatological Problems: No Hx Basil Cell: No Hx Eczema: No Hx Melanoma: No Hx Psoriasis: No Hx Squamous Cell: No - MUSCULOSKELETAL/RHEUMATOLOGICAL Hx Musculoskeletal Disorders: No Hx Arthritis: No Hx Back Pain: No Hx Degenerative Joint Disease: No Hx Falls: No Hx Fractures: No Hx Gout: No Hx Herniated Disk: No Hx Myasthenia Gravis: No Hx Osteoarthritis: No Hx Osteomyelitis: No Hx Osteoporosis: No Hx Rhabdomyolysis: No Hx Spinal Stenosis: No Hx Unsteady Gait: No - GASTROINTESTINAL Hx Gastrointestinal Disorders: Yes Hx Colostomy: No Hx Crohn's Disease: No Hx Diverticulitis: No Hx Gall Bladder Disease: No Hx Gastroesophageal Reflux: Yes Hx Ileostomy: No Hx Liver Failure: No Hx Pancreatitis: No HX Swallowing Problems: No Hx Ulcer: No - GENITOURINARY/GYNECOLOGICAL Hx Genitourinary Disorders: No Hx Hematuria: No Hx Incontinence: No Hx Prostate Problems: No Hx Sexually Transmitted Disorders: No Hx Urinary Tract Infection: No - PSYCHIATRIC Hx Psychophysiologic Disorder: No Hx Anxiety: Yes (alprazolam) Hx Bipolar Disorder: No Hx Depression: No Hx Emotional Abuse: No Hx Hallucinations: No Hx Panic Symptoms: No Hx Paranoia: No Hx Post Traumatic Stress Disorder: No Hx Psychosis: No Hx Physical Abuse: No Hx Schizophrenia: No Hx Sexual Abuse: No Hx Substance Use: No - SURGICAL HISTORY Hx Surgeries: Yes (tonsillectomy/ anal fissure (20 years ago)) Hx Amputation: No Hx Appendectomy: No Hx Cardiac Catheterization: No Hx Cholecystectomy: No Hx Coronary Stent: No Hx Gastric Bypass Surgery: No Hx Hysterectomy: No Hx Joint Replacement: No Hx Kidney Transplant: No Hx Liver Transplant: No Hx Mastectomy: No Hx Musculoskeletal Surgery: No Hx Open Heart Surgery: No Hx Orthopedic Surgery: No Hx Splenectomy: No Hx Valve Replacement: No - ANESTHESIA Hx Anesthesia: Yes Hx Anesthesia Reactions: No Meds Allergies/Adverse Reactions: Allergies Allergy/AdvReac Type Severity Reaction Status Date / Time novalgine Allergy ANAPHYLAXIS Uncoded 08/12/18 10:58 - Medications Medications: Current Medications Sodium Chloride (Sodium Chloride 0.9%) 1,000 mls @ 150 mls/hr IV .Q6H40M [facility] Last Admin: 08/12/18 10:22 Dose: 150 mls/hr Physical Exam - Constitutional Appears: Non-toxic, No Acute Distress - Head Exam Head Exam: ATRAUMATIC, NORMOCEPHALIC - Eye Exam Eye Exam: EOMI. absent: Scleral icterus - ENT Exam ENT Exam: Mucous Membranes Dry Additional comments: trachea midline - Respiratory Exam Respiratory Exam: NORMAL BREATHING PATTERN. absent: Respiratory Distress - GI/Abdominal Exam GI & Abdominal Exam: Soft, Tenderness (mild in epigastrum and LUQ). absent: Distended, Firm, Guarding, Mass, Rebound, Rigid - Rectal Exam Rectal Exam: Deferred - Extremities Exam Extremities exam: Positive for: full ROM. Negative for: pedal edema - Back Exam Back exam: absent: CVA tenderness (L), CVA tenderness (R) - Neurological Exam Neurological exam: Alert, Oriented x3 - Psychiatric Exam Psychiatric exam: Normal Affect, Normal Mood - Skin Skin Exam: Dry, Warm Results - Vital Signs Recent Vital Signs: Last Vital Signs Temp 97.9 F 08/12/18 09:59 Pulse 73 08/12/18 09:59 Resp 16 08/12/18 11:34 BP 103/87 08/12/18 09:59 Pulse Ox 98 08/12/18 09:59 - Labs Labs: Laboratory Results - last 24 hr 08/12/18 11:00 POC Glucose (mg/dL) 206 H - Imaging and Cardiology CT scan - abdomen Status: Image reviewed by me, Report reviewed by me US - abdomen Status: Image reviewed by me, Report reviewed by me Assessment & Plan - Assessment and Plan (Free Text) Assessment: 57M with gastritis vs gastroenteritis Plan: Pain, nausea, emesis all resolving. Imaging negative for surgical pathology. No plan for surgical intervention at this time. Follow up GI recs. Will D/W Dr. Percy Manriquez PGY4
[2018-08-12] MEDS ORDERED: Oxycodone/Acetaminophen 5/325 mg Tab PO PRN (13:42)
--- NOTE | 2018-08-12 15:52 | PCM.RRT ---
STUDIO MANAGER Nurse Assessment - Situation Date: 08/12/18 Time STUDIO MANAGER was called: 15:42 (STUDIO MANAGER) STUDIO MANAGER Responder Arrival Time: 15:41 STUDIO MANAGER Location:: [address] [place] [address] Room Number: 573-1 STUDIO MANAGER Reason for Call: Chest Pain STUDIO MANAGER Called By: Physician - Respiratory Oxygen Delivery Method: Nasal Cannula @L/min Oxygen Flow Rate: 2 - Stat Labs Ordered STUDIO MANAGER Stat Labs Ordered: CBC, BMP, PT/PTT, TROPONIN CPR started during STUDIO MANAGER?: No - Vital Signs Vital Sign: HR 69, 113/75, T98.8, 97% 2L - Recommendations 5) STUDIO MANAGER Level of Care Recommendations: Transfer to Telemetry Notifications: Attending Physician, Consultations, Family or Designated Caregiver I.Reason for STUDIO MANAGER - A) Acute Change in Patient: Subjective: Mr Hinojosa, 57M, with no sig cardiac hx, gastritis, anal fissure, questionable ITP (used to see Dr Goss in the past) c/o epigastric abdominal pain radiating to the back that began last night. As I interview pt just now, his pain 3/10 is pressure like, mid-substernal, with radiation to the back, associated with nausea and vomiting. troponin jumps from 0.01 to 3.14. Family by bedside - Neurological Status (Select all that apply): Alert, Responsive, Oriented, Verbal, Follows Commands - Respiratory Oxygen Delivery Method: Nasal Cannula @L/min - Constitutional Appears: No Acute Distress - Head Head Exam: ATRAUMATIC, NORMAL INSPECTION, NORMOCEPHALIC - Eyes Eye Exam: EOMI, Normal appearance, PERRL. absent: Scleral icterus - Respiratory Exam Respiratory Exam: Clear to Ausculation Bilateral, NORMAL BREATHING PATTERN. absent: Rhonchi, Wheezes - Cardiovascular Exam Cardiovascular Exam: REGULAR RHYTHM, +S1, +S2. absent: Murmur - GI/Abdominal Exam GI & Abdominal Exam: Soft, Normal Bowel Sounds. absent: Guarding, Rigid, Tenderness - Neurological Exam Neurological Exam: Alert, Awake, CN II-XII Intact, Oriented x3 - Extremities Exam Extremities Exam: Full ROM, Normal Capillary Refill Plan - Assessment of Findings&Treatment Plan Mr Hinojosa, 57M, with no sig cardiac hx, gastritis, anal fissure, questionable ITP (used to see Dr Goss in the past) c/o epigastric abdominal pain radiating to the back that began last night. As I interview pt just now, his pain is pressure like, mid-substernal, with radiation to the back, associated with nausea and vomiting. troponin jumps from 0.01 to 3.14. EKG did not shows ST elevation NSTEMI Thrombocytopenia, plt 70-80 - upgrade to tele - ASA, heparin 5000 sc x 1, protonix; coreg, lipitor per cardio - No heparin gtt due to low plt - GI aware of cath plan. Dr Crocker asked to add miralax - Dr Goss recommends to transfuse 1u of single donor platelet prior to tomorrow's cath - Dr Nina asked to put 1 inch nitro paste - continue to trend trops, serial EKG. - trend labs and replete electrolyte as needed - lipid panel, A1C, Tsh/free t4 - echo - Primary care doc, Dr Nina, and family notified
[2018-08-12 15:58] LABS: BASO # 0.01 K/mm3 (0.0-2.0); BASO % 0.1 % (0.0-3.0); EOS % 0.3 % (1.5-5.0); HEMOGLOBIN 14.3 g/dL (14.0-18.0); LYMPH # 2.2 (1.2-3.4); LYMPH % 32.7 % (22.0-35.0); MEAN CELL VOLUME 86.6 fl (80.0-105.0); MEAN CORPUSCULAR HEMOGLOBIN 31.4 pg (25.0-35.0); MEAN CORPUSCULAR HGB CONC 36.2 g/dl (31.0-37.0); MEAN PLATELET VOLUME 9.3 fl (7.0-11.0); MONO # 0.6 (0.1-0.6); MONO % 8.4 % (1.0-6.0); RBC 4.56 10^6/uL (3.5-6.1); RED CELL DISTRIBUTION WIDTH 12.5 % (11.5-14.5); WHITE BLOOD COUNT 6.8 10^3/uL (4.5-11.0)
[2018-08-12 16:09] LABS: INR 1.14; PARTIAL THROMBOPLASTIN TIME 26.1 Seconds (26.9-38.3); PROTHROMBIN TIME 12.6 SECONDS (9.4-12.5)
--- NOTE | 2018-08-12 16:14 | RAD ---
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 CARDIOVASCULAR: Minimal aortic atherosclerotic calcification present. Normal cardiac size. No pulmonary vascular congestion. OSSEOUS STRUCTURES: No significant abnormalities. VISUALIZED UPPER ABDOMEN: Normal. OTHER FINDINGS: None. IMPRESSION: Minimal bibasilar atelectasis
--- NOTE | 2018-08-12 16:18 | CARD ---
APPROVED REPORT Date of service: 08/12/2018 EKG Measurement Heart [id number] <Conclusion> Normal sinus rhythm with sinus arrhythmia Normal ECG
[2018-08-12 16:20] LABS: ALB/GLOB RATIO 1.4 (1.1-1.8); ALBUMIN 4.4 g/dL (3.0-4.8); ALT/SGPT 39 U/L (7-56); AST/SGOT 78 U/L (17-59); BLOOD UREA NITROGEN 16 mg/dL (7-21); CALCIUM 9.3 mg/dL (8.4-10.5); GFR NON-AFRICAN AMERICAN > 60
[2018-08-12] MEDS ORDERED: Potassium Chloride 40 mEq/30 ml LIQ UD PO ONE (16:31)
--- NOTE | 2018-08-12 16:34 | CP.PCM.PCO ---
Physician Communication Note - Physician Communication Note Physician Communication Note: follow cardiology recommendations for possible anticoagulation
--- NOTE | 2018-08-12 16:39 | CP.PCM.PN ---
Subjective - Date & Time of Evaluation Date of Evaluation: 08/12/18 Time of Evaluation: 16:37 - Subjective Subjective: Physician Communication Note for Gastroenterology Patient with rapid response for chest pain and elevated troponin. Benefits outweigh risks for possible anticoagulation based on cardiology recommendation with normal hemoglobin/hematocrit, no signs of GI bleed, and chronic thrombocytopenia at baseline on record review suspicious for underlying ITP which requires further workup if not completed outpatient. Follow up cardiology evaluation and recommendations. Objective - Vital Signs/Intake and Output Vital Signs (last 24 hours): Temp Pulse Resp BP Pulse Ox 97.9 F 72 20 110/78 98 08/12/18 14:00 08/12/18 16:32 08/12/18 14:00 08/12/18 16:32 08/12/18 14:00 - Medications Medications: Current Medications Aspirin (Aspirin Chewable) 81 mg PO DAILY [facility] Last Admin: 08/12/18 16:33 Dose: Not Given Atorvastatin Calcium (Lipitor) 20 mg PO DIN [facility] Last Admin: 08/12/18 16:32 Dose: 20 mg Carvedilol (Coreg) 3.125 mg PO BID [facility] Last Admin: 08/12/18 16:32 Dose: 3.125 mg Famotidine (Pepcid) 20 mg IVP BID [facility] Last Admin: 08/12/18 16:32 Dose: 20 mg Sodium Chloride (Sodium Chloride 0.9%) 1,000 mls @ 100 mls/hr IV .Q10H [facility] Last Admin: 08/12/18 16:34 Dose: 100 mls/hr Nitroglycerin (Nitrostat Sl Tab) 0.4 mg SL ONCE ONE Stop: 08/12/18 16:31 Ondansetron HCl (Zofran Inj) 4 mg IVP Q6H PRN PRN Reason: Nausea/Vomiting Last Admin: 08/12/18 16:26 Dose: 4 mg Oxycodone/Acetaminophen (Percocet 5/325 Mg Tab) 1 tab PO Q4H PRN PRN Reason: Pain, moderate (4-7) Stop: 08/15/18 13:43 Pantoprazole Sodium (Protonix Inj) 40 mg IVP DAILY [facility] Potassium Chloride (Potassium Chloride Oral Soln) 40 meq PO ONCE ONE Stop: 08/12/18 16:32 - Labs Labs: 08/12/18 15:50 08/12/18 15:50 PT 12.6 SECONDS (9.4-12.5) H 08/12/18 15:50 INR 1.14 08/12/18 15:50 APTT 26.1 Seconds (26.9-38.3) L 08/12/18 15:50
[2018-08-12] MEDS: Nitroglycerin 2% Ointment Foilpak UD TOP SCH ×2 (16:47→17:38)
[2018-08-12] MEDS: POLYETHYLENE GLYCOL 3350 17 GM/Dose PACKET PO SCH (18:17)
[2018-08-12 18:44] LABS: CK MB% 6.9 % (2.5-3.0); CK-MB 43.2 ng/mL (0.0-3.6); TROPONIN I 8.96 ng/mL
[2018-08-12] MEDS ORDERED: Enoxaparin 40 mg Syringe SC STA (19:27)
[2018-08-12] MEDS ORDERED: Potassium Chloride 20 mEq ER Tab PO ONE (21:05)
--- NOTE | 2018-08-12 22:07 | CP.PCM.PN ---
Subjective - Date & Time of Evaluation Date of Evaluation: 08/12/18 Time of Evaluation: 21:59 - Subjective Subjective: It was requested to co-sign order for plateletpheresis. Patient was seen at bed side .He complains of nausea. Has no other complaints. Discussed with primary nurse of patient,Naa. As per whom,patient is going for cardiac cath and platelet has to be infused one hour prior to cardiac cat which is going to be scheduled somewhere about 10:30 to 11 am. Today's events noted. Medical record was reviewed. This 57 year old male was admitted with epigastric pain radiating to back,vomiting, was found later on to have elevated troponin and is for cardiac cath in AM. Has PMH of GERD, back pain. Objective - Vital Signs/Intake and Output Vital Signs (last 24 hours): Temp Pulse Resp BP Pulse Ox 99 F 74 22 113/78 99 08/12/18 18:00 08/12/18 18:00 08/12/18 18:00 08/12/18 18:00 08/12/18 18:00 Intake and Output: 08/12/18 08/13/18 18:59 06:59 Intake Total 0 Output Total 0 Balance 0 - Medications Medications: Current Medications Aspirin (Aspirin Chewable) 81 mg PO DAILY [facility] Last Admin: 08/12/18 16:33 Dose: Not Given Atorvastatin Calcium (Lipitor) 20 mg PO DIN [facility] Last Admin: 08/12/18 16:32 Dose: 20 mg Carvedilol (Coreg) 3.125 mg PO BID [facility] Last Admin: 08/12/18 17:38 Dose: Not Given Famotidine (Pepcid) 20 mg IVP BID [facility] Last Admin: 08/12/18 17:38 Dose: Not Given Sodium Chloride (Sodium Chloride 0.9%) 1,000 mls @ 100 mls/hr IV .Q10H [facility] Last Admin: 08/12/18 16:34 Dose: 100 mls/hr Nitroglycerin (Nitro-Bid 2% Oint) 1 ea TOP BID [facility] Last Admin: 08/12/18 17:38 Dose: Not Given Ondansetron HCl (Zofran Inj) 4 mg IVP Q6H PRN PRN Reason: Nausea/Vomiting Last Admin: 08/12/18 16:26 Dose: 4 mg Oxycodone/Acetaminophen (Percocet 5/325 Mg Tab) 1 tab PO Q4H PRN PRN Reason: Pain, moderate (4-7) Stop: 08/15/18 13:43 Pantoprazole Sodium (Protonix Inj) 40 mg IVP DAILY [facility] Polyethylene Glycol (Miralax) 17 gm PO BID [facility] Last Admin: 08/12/18 18:17 Dose: Not Given - Labs Labs: 08/12/18 15:50 08/12/18 15:50 PT 12.6 SECONDS (9.4-12.5) H 08/12/18 15:50 INR 1.14 08/12/18 15:50 APTT 26.1 Seconds (26.9-38.3) L 08/12/18 15:50 - Constitutional Appears: Well, No Acute Distress - Head Exam Head Exam: ATRAUMATIC, NORMAL INSPECTION, NORMOCEPHALIC - Eye Exam Eye Exam: Normal appearance - ENT Exam ENT Exam: Normal External Ear Exam - Neck Exam Neck Exam: Normal Inspection - Respiratory Exam Respiratory Exam: NORMAL BREATHING PATTERN - Cardiovascular Exam Cardiovascular Exam: absent: JVD - GI/Abdominal Exam GI & Abdominal Exam: absent: Distended - Rectal Exam Rectal Exam: Deferred - Exam Additional comments: Deferred. - Extremities Exam Extremities Exam: Normal Inspection - Back Exam Back Exam: NORMAL INSPECTION - Neurological Exam Neurological Exam: Alert, Awake, Oriented x3 - Psychiatric Exam Psychiatric exam: Normal Affect, Normal Mood - Skin Skin Exam: Normal Color Assessment and Plan - Assessment and Plan (Free Text) Assessment: NSTEMI. Gastritis. GERD. Obesity. History of back pain. Elevated troponin. Plan: Zofran 4 mg IV x 1. Platelet transfusion will be ordered one hour befroe procedure of cardiac catheterization. Continue present management.
--- NOTE | 2018-08-12 22:08 | HP ---
DATE OF EXAM: 08/12/2018 CHIEF COMPLAINT: Patient came to the hospital because of epigastric pain radiates to his chest. 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 HISTORY OF PRESENT ILLNESS: This is a 57-year-old male with history of thrombocytopenia and history of H. pylori that was treated in the past and gastritis. The patient also had been complaining of chest pain and epigastric pain; however, he was so good for a year or more or at least a year with the medication for his gastritis; however, at this time, he developed some epigastric discomfort that radiates to his upper chest. The pain stayed for a while, for at least 30 minutes or more, then it comes and goes. Patient came to the Emergency Room twice. The second time he complained similar symptoms; however, his workup in the previous one was negative including troponin and CT abdomen and pelvis. A gallbladder ultrasound was ordered, it was still pending from previous admissions. This time, patient came in with the same complaint and was admitted for observations. PAST MEDICAL HISTORY: As I mentioned, H. Pylori gastritis, thrombocytopenia, seen by Hematology as outpatient Dr. Goss. ALLERGIES: HE IS ALLERGIC TO , WHICH IS NOT USED IN [place]. MEDICATIONS: He takes Xanax p.r.n. and he takes Prilosec 40 mg one a day. SOCIAL HISTORY: Nonsmoker, nondrinker except social. Lives with his and children. 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 REVIEW OF SYSTEMS: As in the present illness, otherwise negative. PHYSICAL EXAMINATION GENERAL: Patient is comfortable, does not seem to be in distress on floor. No respiratory distress. Does not seem to be in pain at this time. VITAL SIGNS: His temperature is 97.9, heart rate is 73, blood pressure is 108/73, respiration 20, saturating 98%. HEAD AND NECK: Normal. No JVD. No thyromegaly. CHEST: Clear bilateral. CARDIAC: First sound and second sound normal. No murmur, rub or gallop. ABDOMEN: Soft and nontender. EXTREMITIES: No edema. NEUROLOGIC: Normal. LABORATORY DATA: The patient has laboratory studies, which include white count 6.8, hemoglobin 14.3, hematocrit 39.5, and platelets 74 and on a repeat is 87. Chemistry, we will get the previous chemistry, which was done on the previous admissions. Chemistry was within normal range with previous sodium 139, potassium 3.7, chloride 103, bicarb 29, BUN 19, creatinine 0.9. Blood sugar 177. Calcium 9.3, total bilirubin 0.4. Liver function test is normal and troponin initial one was negative and his lipase was normal. Patient had some blood gas, PO2 is 149, normal and PCO2 54, bicarb 29, and pH 7.35, lactate was a little bit high at 2.8. Also EKG was reported, regular sinus rhythm, negative murmur. CT abdomen and pelvis done and was read as negative. There is no acute finding and it was performed with IV contrast and it was negative, it showed some thickening of the distal gastric pyloric region, otherwise negative. A chest x-ray was reported as negative. No active lung disease, maybe minimal basilar atelectasis. IMPRESSION AND PLAN: This is a 57-year-old male, history of gastritis with low platelets in the past, being seen, treated and his platelets runs normal in the 70-80s. Came in, complaining of epigastric pain that radiates to his chest. The pain stays for maybe a half hour or more when it comes back. He came again to the ER with similar complaint and troponin was negative. Patient was admitted for observations. I did reevaluate the patient and I know the patient does not have any tenderness in epigastric area. These symptoms could be something to do with the cardiac, so we repeated troponin, which came back positive and also Cardiology consult was put in for evaluation of his epigastric discomfort; however, in the presence of troponin, normal EKG, the conclusion that is this is acute non-ST elevation myocardial infarction. We gave aspirin, beta blockers. Dr. Vera covering Dr. Clarke already knows about the case. We will transfer the patient to Telemetry and we will continue followup on that. Tim Nina MD
[2018-08-13 00:55] LABS: CK MB% 5.5 % (2.5-3.0)
[2018-08-13 01:59] LABS: TROPONIN I 21.1 ng/mL
[2018-08-13] MEDS ORDERED: DOPamine 400mg/250ml D5W 400 MG/250 ML BAG IV PRN (04:39)
[2018-08-13] MEDS ORDERED: Iodixanol 320 MG/ML 100 ML BOTTLE IV ONE (04:54)
--- NOTE | 2018-08-13 05:22 | CP.PCM.CON ---
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 During the hospital stay he was found to develop elevated troponins and was diagnosed with an NSTEMI. Patients later complained of weakness, developed hypotension, and ICU transfer was requested. Patient seen and examined at bedside. Patient admits to feeling weak. Also admits to baseline abdominal pain, nausea, and vomiting. Denies fever, chills, dizziness, palpitations, chest pain, SOB, diarrhea, constipation, and urinary symptoms. 12 point ROS negative except as indicated in the HPI PMHx: Gastritis, GERD, Back pain, Anal fissures PSHx: Tonsillectomy (40 years ago), Anal fissures (25 years ago), Varicocele Allergies: Novalgine allergy anaphylaxis FHx: Denies SHx: No tobacco or drug use, rare EtOH use Home Meds: Omeprazole 40mg PO daily, occasionally takes viagra and xanax Physical Examination: - Constitutional Appears: Non-toxic, No Acute Distress - Head Exam Head Exam: ATRAUMATIC, NORMOCEPHALIC - Eye Exam Eye Exam: EOMI - ENT Exam ENT Exam: Mucous Membranes Moist - Neck Exam Neck Exam: Full ROM, Normal Inspection - Cardiac Exam Cardiac Exam: +S1, +S2, RRR, no murmurs, no gallops, no rubs - Respiratory Exam Respiratory Exam: normal breathing pattern, absent: Accessory Muscle Use, Respiratory Distress - GI/Abdominal Exam GI & Abdominal Exam: Soft. 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 During his hospital stay he was found to develop elevated troponins. Repeat EKG 08/13/18 revealed NSR with no defining ST segment and/or T wave changes. N/V continued. He developed hypotension and is being transferred to the ICU for further management. NSTEMI, Cardiogenic Shock - given ASA 325mg PO x 1, heparin 5000 units IV x 1, plavix 300mg PO x 1, lovenox 40mg subq x 1 on telemetry during/subsequently after [facility] on 08/12/2018 - hold coreg due to hypotension - continue Lipitor 20mg PO QHS - started on dopamine 5mcg/kg/min, goal MAP>65 - lipid panel, A1C, Tsh/free t4 ordered and pending - echocardiogram ordered and pending - cardiology consulted (Dr. 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 Crocker)- appreciate recommendations Prophylaxis - DVT- on heparin drip - GI- PPI and famotidine Patient case discussed with and plan approved by attending physician, Dr. Hartley. Past Patient History - Infectious Disease Hx of Infectious Diseases: None - Tetanus Immunizations Tetanus Immunization: Unknown - Past Social History Smoking Status: Never Smoked - CARDIAC Hx Cardiac Disorders: No Hx Angina: No Hx Cardia Arrhythmia: No Hx Circulatory Problems: No Hx Congestive Heart Failure: No Hx Heart Murmur: No Hx Heart Transplant: No Hx Hypercholesterolemia: No Hx Hypertension: No Hx Internal Defibrillator: No Hx Mitral Valve Prolapse: No Hx Pacemaker: No Hx Peripheral Edema: No Hx Peripheral Vascular Disease: No - PULMONARY Hx Respiratory Disorders: No Hx Asthma: No Hx Bronchitis: No Hx Chronic Obstructive Pulmonary Disease (COPD): No Hx Emphysema: No Hx Pneumonia: No Hx Respiratory Aspiration: No Hx Respiratory Tract Infection: No Hx Sleep Apnea: No Hx Tuberculosis: No - NEUROLOGICAL Hx Neurological Disorder: No Hx Alzheimer's Disease: No HX Cerebrovascular Accident: No Hx Dementia: No Hx Dizziness: No Hx Meningitis: No Hx Migraine: No Hx Parkinson's Disease: No Hx Seizures: No Hx Transient Ischemic Attacks (TIA): No - HEENT Hx HEENT Problems: No Hx Blind: No Hx Cataracts: No Hx Deafness: No Hx Difficulty Chewing: No Hx Epistaxis: No Hx Glaucoma: No Hx Macular Degeneration: No - RENAL Hx Chronic Kidney Disease: No Hx Dialysis: No Hx Kidney Stones: No Hx Neurogenic Bladder: No Hx Pyelonephritis: No Hx Renal (Kidney) Cancer: No Hx Renal Failure: No - ENDOCRINE/METABOLIC Hx Endocrine Disorders: No Hx Adrenal Cancer: No Hx Diabetes Insipidus: No Hx Diabetes Mellitus Type 1: No Hx Diabetes Mellitus Type 2: No Hx Hyperthyroidism: No Hx Hypothyroidism: No Hx Systemic Lupus Erythematosus: No - HEMATOLOGICAL/ONCOLOGICAL Hx Blood Disorders: No Hx AIDS: No Hx Anemia: No Hx Cancer: No Hx Chemotherapy: No Hx Cirrhosis: No Hx Hemophilia: No Hx Hepatitis A: No Hx Hepatitis B: No Hx Hepatitis C: No Hx Human Immunodeficiency Virus (HIV): No Hx Metastesis: No Hx Shingles: No Hx Sickle Cell Disease: No Hx Unexplained Bleeding: No - INTEGUMENTARY Hx Dermatological Problems: No Hx Basil Cell: No Hx Eczema: No Hx Melanoma: No Hx Psoriasis: No Hx Squamous Cell: No - MUSCULOSKELETAL/RHEUMATOLOGICAL Hx Musculoskeletal Disorders: No Hx Arthritis: No Hx Back Pain: No Hx Degenerative Joint Disease: No Hx Falls: No Hx Fractures: No Hx Gout: No Hx Herniated Disk: No Hx Myasthenia Gravis: No Hx Osteoarthritis: No Hx Osteomyelitis: No Hx Osteoporosis: No Hx Rhabdomyolysis: No Hx Spinal Stenosis: No Hx Unsteady Gait: No - GASTROINTESTINAL Hx Gastrointestinal Disorders: Yes Hx Colostomy: No Hx Crohn's Disease: No Hx Diverticulitis: No Hx Gall Bladder Disease: No Hx Gastroesophageal Reflux: Yes Hx Ileostomy: No Hx Liver Failure: No Hx Pancreatitis: No HX Swallowing Problems: No Hx Ulcer: No - GENITOURINARY/GYNECOLOGICAL Hx Genitourinary Disorders: No Hx Hematuria: No Hx Incontinence: No Hx Prostate Problems: No Hx Sexually Transmitted Disorders: No Hx Urinary Tract Infection: No - PSYCHIATRIC Hx Psychophysiologic Disorder: No Hx Anxiety: Yes (alprazolam) Hx Bipolar Disorder: No Hx Depression: No Hx Emotional Abuse: No Hx Hallucinations: No Hx Panic Symptoms: No Hx Paranoia: No Hx Post Traumatic Stress Disorder: No Hx Psychosis: No Hx Physical Abuse: No Hx Schizophrenia: No Hx Sexual Abuse: No Hx Substance Use: No - SURGICAL HISTORY Hx Surgeries: Yes (tonsillectomy/ anal fissure (20 years ago)) Hx Amputation: No Hx Appendectomy: No Hx Cardiac Catheterization: No Hx Cholecystectomy: No Hx Coronary Stent: No Hx Gastric Bypass Surgery: No Hx Hysterectomy: No Hx Joint Replacement: No Hx Kidney Transplant: No Hx Liver Transplant: No Hx Mastectomy: No Hx Musculoskeletal Surgery: No Hx Open Heart Surgery: No Hx Orthopedic Surgery: No Hx Splenectomy: No Hx Valve Replacement: No - ANESTHESIA Hx Anesthesia: Yes Hx Anesthesia Reactions: No Meds Allergies/Adverse Reactions: Allergies Allergy/AdvReac Type Severity Reaction Status Date / Time novalgine Allergy ANAPHYLAXIS Uncoded 08/12/18 10:58 - Medications Medications: Current Medications Aspirin (Aspirin Chewable) 81 mg PO DAILY [facility] Last Admin: 08/12/18 16:33 Dose: Not Given Atorvastatin Calcium (Lipitor) 20 mg PO DIN [facility] Last Admin: 08/12/18 16:32 Dose: 20 mg Carvedilol (Coreg) 3.125 mg PO BID [facility] Last Admin: 08/12/18 17:38 Dose: Not Given Famotidine (Pepcid) 20 mg IVP BID [facility] Last Admin: 08/12/18 17:38 Dose: Not Given Sodium Chloride (Sodium Chloride 0.9%) 1,000 mls @ 100 mls/hr IV .Q10H [facility] Last Admin: 08/12/18 16:34 Dose: 100 mls/hr Dopamine HCl/Dextrose (Dopamine 400mg/250ml D5w) 400 mg in 250 mls @ 17.01 mls/hr IV .[id number] PRN; Protocol PRN Reason: renal dose. Last Admin: 08/13/18 04:56 Dose: 5 mcg/kg/min, 17.01 mls/hr Nitroglycerin (Nitro-Bid 2% Oint) 1 ea TOP BID [facility] Last Admin: 08/12/18 17:38 Dose: Not Given Ondansetron HCl (Zofran Inj) 4 mg IVP Q6H PRN PRN Reason: Nausea/Vomiting Last Admin: 08/12/18 22:13 Dose: 4 mg Oxycodone/Acetaminophen (Percocet 5/325 Mg Tab) 1 tab PO Q4H PRN PRN Reason: Pain, moderate (4-7) Stop: 08/15/18 13:43 Pantoprazole Sodium (Protonix Inj) 40 mg IVP DAILY [facility] Polyethylene Glycol (Miralax) 17 gm PO BID [facility] Last Admin: 08/12/18 18:17 Dose: Not Given Results - Vital Signs Recent Vital Signs: Last Vital Signs Temp 98.6 F 08/12/18 22:00 Pulse 61 08/12/18 22:00 Resp 18 08/12/18 22:00 BP 70/58 L 08/13/18 04:56 Pulse Ox 97 08/12/18 22:00 - Labs Result Diagrams: 08/12/18 15:50 08/12/18 15:50 Labs: Laboratory Results - last 24 hr 08/12/18 08/12/18 08/12/18 11:00 14:30 14:30 WBC RBC Hgb Hct MCV MCH MCHC RDW Plt Count Manual Plt Count MPV Neut % (Auto) Lymph % (Auto) [place] % (Auto) Eos % (Auto) Baso % (Auto) Lymph # (Auto) [place] # (Auto) Eos # (Auto) Baso # (Auto) Absolute Neuts (auto) PT INR APTT D-Dimer, Quantitative Sodium Potassium Chloride Carbon Dioxide Anion Gap BUN Creatinine Est GFR ( Amer) Est GFR (Non-Af Amer) POC Glucose (mg/dL) 206 H Random Glucose Lactic Acid 1.5 Calcium Magnesium Total Bilirubin AST ALT Alkaline Phosphatase Lactate Dehydrogenase Total Creatine Kinase CK-MB (CK-2) CK-MB (CK-2) % Troponin I 3.14 H* D Total Protein Albumin Globulin Albumin/Globulin Ratio Blood Type Blood Type Confirm Antibody Screen BBK History Checked 08/12/18 08/12/18 08/12/18 15:43 15:50 15:50 WBC 6.8 D RBC 4.56 Hgb 14.3 Hct 39.5 L MCV 86.6 MCH 31.4 MCHC 36.2 RDW 12.5 Plt Count 74 L Manual Plt Count MPV 9.3 Neut % (Auto) 58.5 Lymph % (Auto) 32.7 [place] % (Auto) 8.4 H Eos % (Auto) 0.3 L Baso % (Auto) 0.1 Lymph # (Auto) 2.2 [place] # (Auto) 0.6 Eos # (Auto) 0.0 Baso # (Auto) 0.01 Absolute Neuts (auto) 3.95 PT 12.6 H INR 1.14 APTT 26.1 L D-Dimer, Quantitative 261 H Sodium Potassium Chloride Carbon Dioxide Anion Gap BUN Creatinine Est GFR ( Amer) Est GFR (Non-Af Amer) POC Glucose (mg/dL) 100 Random Glucose Lactic Acid Calcium Magnesium Total Bilirubin AST ALT Alkaline Phosphatase Lactate Dehydrogenase Total Creatine Kinase CK-MB (CK-2) CK-MB (CK-2) % Troponin I Total Protein Albumin Globulin Albumin/Globulin Ratio Blood Type Blood Type Confirm Antibody Screen BBK History Checked 08/12/18 08/12/18 08/12/18 15:50 16:00 17:04 WBC RBC Hgb Hct MCV MCH MCHC RDW Plt Count Manual Plt Count 87 L MPV Neut % (Auto) Lymph % (Auto) [place] % (Auto) Eos % (Auto) Baso % (Auto) Lymph # (Auto) [place] # (Auto) Eos # (Auto) Baso # (Auto) Absolute Neuts (auto) PT INR APTT D-Dimer, Quantitative Sodium 139 Potassium 3.5 L Chloride 103 Carbon Dioxide 29 Anion Gap 11 BUN 16 Creatinine 0.8 Est GFR ( Amer) > 60 Est GFR (Non-Af Amer) > 60 POC Glucose (mg/dL) Random Glucose 105 Lactic Acid Calcium 9.3 Magnesium 2.4 H Total Bilirubin 1.0 AST 78 H D ALT 39 Alkaline Phosphatase 79 Lactate Dehydrogenase Total Creatine Kinase CK-MB (CK-2) CK-MB (CK-2) % Troponin I Total Protein 7.4 Albumin 4.4 Globulin 3.1 Albumin/Globulin Ratio 1.4 Blood Type B POSITIVE Blood Type Confirm Antibody Screen Negative BBK History Checked No verified bt 08/12/18 08/12/18 08/13/18 18:00 18:00 00:18 WBC RBC Hgb Hct MCV MCH MCHC RDW Plt Count Manual Plt Count MPV Neut % (Auto) Lymph % (Auto) [place] % (Auto) Eos % (Auto) Baso % (Auto) Lymph # (Auto) [place] # (Auto) Eos # (Auto) Baso # (Auto) Absolute Neuts (auto) PT INR APTT D-Dimer, Quantitative Sodium Potassium Chloride Carbon Dioxide Anion Gap BUN Creatinine Est GFR ( Amer) Est GFR (Non-Af Amer) POC Glucose (mg/dL) Random Glucose Lactic Acid Calcium Magnesium Total Bilirubin AST ALT Alkaline Phosphatase Lactate Dehydrogenase 484 597 Total Creatine Kinase 626 H 784 H CK-MB (CK-2) 43.2 H 43.0 H CK-MB (CK-2) % 6.9 H 5.5 H Troponin I 8.96 H* D 21.10 H* D Total Protein Albumin Globulin Albumin/Globulin Ratio Blood Type Blood Type Confirm B POSITIVE Antibody Screen BBK History Checked <Mary Hartley - Last Filed: 08/13/18 06:07> Meds - Medications Medications: Current Medications Aspirin (Aspirin Chewable) 81 mg PO DAILY [facility] Last Admin: 08/12/18 16:33 Dose: Not Given Atorvastatin Calcium (Lipitor) 20 mg PO DIN [facility] Last Admin: 08/12/18 16:32 Dose: 20 mg Carvedilol (Coreg) 3.125 mg PO BID [facility] Last Admin: 08/12/18 17:38 Dose: Not Given Famotidine (Pepcid) 20 mg IVP BID [facility] Last Admin: 08/12/18 17:38 Dose: Not Given Sodium Chloride (Sodium Chloride 0.9%) 1,000 mls @ 100 mls/hr IV .Q10H [facility] Last Admin: 08/12/18 16:34 Dose: 100 mls/hr Dopamine HCl/Dextrose (Dopamine 400mg/250ml D5w) 400 mg in 250 mls @ 17.01 mls/hr IV .[id number] PRN; Protocol PRN Reason: renal dose. Last Admin: 08/13/18 04:56 Dose: 5 mcg/kg/min, 17.01 mls/hr Heparin Sodium/Sodium Chloride (Heparin 05799 Units/250ml 1/2 Normal Saline) 25,000 units in 250 mls @ 10.886 mls/hr IV .[id number] [facility]; Protocol Stop: 08/13/18 08:00 Nitroglycerin (Nitro-Bid 2% Oint) 1 ea TOP BID [facility] Last Admin: 08/12/18 17:38 Dose: Not Given Ondansetron HCl (Zofran Inj) 4 mg IVP Q6H PRN PRN Reason: Nausea/Vomiting Last Admin: 08/12/18 22:13 Dose: 4 mg Oxycodone/Acetaminophen (Percocet 5/325 Mg Tab) 1 tab PO Q4H PRN PRN Reason: Pain, moderate (4-7) Stop: 08/15/18 13:43 Pantoprazole Sodium (Protonix Inj) 40 mg IVP DAILY [facility] Polyethylene Glycol (Miralax) 17 gm PO BID [facility] Last Admin: 08/12/18 18:17 Dose: Not Given Results - Vital Signs Recent Vital Signs: Last Vital Signs Temp 98.6 F 08/12/18 22:00 Pulse 61 08/12/18 22:00 Resp 18 08/12/18 22:00 BP 70/58 L 08/13/18 04:56 Pulse Ox 97 08/12/18 22:00 - Labs Result Diagrams: 08/12/18 15:50 08/12/18 15:50 Labs: Laboratory Results - last 24 hr 08/12/18 08/12/18 08/12/18 11:00 14:30 14:30 WBC RBC Hgb Hct MCV MCH MCHC RDW Plt Count Manual Plt Count MPV Neut % (Auto) Lymph % (Auto) [place] % (Auto) Eos % (Auto) Baso % (Auto) Lymph # (Auto) [place] # (Auto) Eos # (Auto) Baso # (Auto) Absolute Neuts (auto) PT INR APTT D-Dimer, Quantitative Sodium Potassium Chloride Carbon Dioxide Anion Gap BUN Creatinine Est GFR ( Amer) Est GFR (Non-Af Amer) POC Glucose (mg/dL) 206 H Random Glucose Lactic Acid 1.5 Calcium Magnesium Total Bilirubin AST ALT Alkaline Phosphatase Lactate Dehydrogenase Total Creatine Kinase CK-MB (CK-2) CK-MB (CK-2) % Troponin I 3.14 H* D Total Protein Albumin Globulin Albumin/Globulin Ratio Blood Type Blood Type Confirm Antibody Screen BBK History Checked 08/12/18 08/12/18 08/12/18 15:43 15:50 15:50 WBC 6.8 D RBC 4.56 Hgb 14.3 Hct 39.5 L MCV 86.6 MCH 31.4 MCHC 36.2 RDW 12.5 Plt Count 74 L Manual Plt Count MPV 9.3 Neut % (Auto) 58.5 Lymph % (Auto) 32.7 [place] % (Auto) 8.4 H Eos % (Auto) 0.3 L Baso % (Auto) 0.1 Lymph # (Auto) 2.2 [place] # (Auto) 0.6 Eos # (Auto) 0.0 Baso # (Auto) 0.01 Absolute Neuts (auto) 3.95 PT 12.6 H INR 1.14 APTT 26.1 L D-Dimer, Quantitative 261 H Sodium Potassium Chloride Carbon Dioxide Anion Gap BUN Creatinine Est GFR ( Amer) Est GFR (Non-Af Amer) POC Glucose (mg/dL) 100 Random Glucose Lactic Acid Calcium Magnesium Total Bilirubin AST ALT Alkaline Phosphatase Lactate Dehydrogenase Total Creatine Kinase CK-MB (CK-2) CK-MB (CK-2) % Troponin I Total Protein Albumin Globulin Albumin/Globulin Ratio Blood Type Blood Type Confirm Antibody Screen BBK History Checked 08/12/18 08/12/18 08/12/18 15:50 16:00 17:04 WBC RBC Hgb Hct MCV MCH MCHC RDW Plt Count Manual Plt Count 87 L MPV Neut % (Auto) Lymph % (Auto) [place] % (Auto) Eos % (Auto) Baso % (Auto) Lymph # (Auto) [place] # (Auto) Eos # (Auto) Baso # (Auto) Absolute Neuts (auto) PT INR APTT D-Dimer, Quantitative Sodium 139 Potassium 3.5 L Chloride 103 Carbon Dioxide 29 Anion Gap 11 BUN 16 Creatinine 0.8 Est GFR ( Amer) > 60 Est GFR (Non-Af Amer) > 60 POC Glucose (mg/dL) Random Glucose 105 Lactic Acid Calcium 9.3 Magnesium 2.4 H Total Bilirubin 1.0 AST 78 H D ALT 39 Alkaline Phosphatase 79 Lactate Dehydrogenase Total Creatine Kinase CK-MB (CK-2) CK-MB (CK-2) % Troponin I Total Protein 7.4 Albumin 4.4 Globulin 3.1 Albumin/Globulin Ratio 1.4 Blood Type B POSITIVE Blood Type Confirm Antibody Screen Negative BBK History Checked No verified bt 08/12/18 08/12/18 08/13/18 18:00 18:00 00:18 WBC RBC Hgb Hct MCV MCH MCHC RDW Plt Count Manual Plt Count MPV Neut % (Auto) Lymph % (Auto) [place] % (Auto) Eos % (Auto) Baso % (Auto) Lymph # (Auto) [place] # (Auto) Eos # (Auto) Baso # (Auto) Absolute Neuts (auto) PT INR APTT D-Dimer, Quantitative Sodium Potassium Chloride Carbon Dioxide Anion Gap BUN Creatinine Est GFR ( Amer) Est GFR (Non-Af Amer) POC Glucose (mg/dL) Random Glucose Lactic Acid Calcium Magnesium Total Bilirubin AST ALT Alkaline Phosphatase Lactate Dehydrogenase 484 597 Total Creatine Kinase 626 H 784 H CK-MB (CK-2) 43.2 H 43.0 H CK-MB (CK-2) % 6.9 H 5.5 H Troponin I 8.96 H* D 21.10 H* D Total Protein Albumin Globulin Albumin/Globulin Ratio Blood Type Blood Type Confirm B POSITIVE Antibody Screen BBK History Checked Attending/Attestation - Attestation I have personally seen and examined this patient.: Yes I have fully participated in the care of the patient.: Yes I have reviewed all pertinent clinical information: Yes Notes (Text): 08/13/18 06:06 Patient was seen in [facility]-. Agree with consult note. Patient is being transferred to CCU. CCT: >30 minutes.
[2018-08-13] MEDS ORDERED: Heparin25000 units/250ml 1/2NS 25,000 UNITS/250 ML BAG IV SCH ×3 (05:45→06:25)
[2018-08-13 06:39] LABS: BASO # 0.01 K/mm3 (0.0-2.0); BASO % 0.2 % (0.0-3.0); EOS % 0.2 % (1.5-5.0); HEMOGLOBIN 13.1 g/dL (14.0-18.0); LYMPH # 1.5 (1.2-3.4); LYMPH % 26.8 % (22.0-35.0); MEAN CORPUSCULAR HEMOGLOBIN 30.8 pg (25.0-35.0); MEAN CORPUSCULAR HGB CONC 34.9 g/dl (31.0-37.0); MEAN PLATELET VOLUME 9.9 fl (7.0-11.0); MONO # 0.6 (0.1-0.6); MONO % 11.4 % (1.0-6.0); RBC 4.26 10^6/uL (3.5-6.1); RED CELL DISTRIBUTION WIDTH 12.8 % (11.5-14.5); WHITE BLOOD COUNT 5.6 10^3/uL (4.5-11.0)
[2018-08-13 06:50] LABS: LDL CHOLESTEROL 63 mg/dL (0-129)
[2018-08-13 06:55] LABS: FREE T4 0.99 ng/dL (0.78-2.19)
[2018-08-13 06:56] LABS: ALB/GLOB RATIO 1.4 (1.1-1.8); ALBUMIN 3.9 g/dL (3.0-4.8); ALT/SGPT 68 U/L (7-56); AST/SGOT 145 U/L (17-59); BLOOD UREA NITROGEN 21 mg/dL (7-21); CALCIUM 8.8 mg/dL (8.4-10.5); GFR NON-AFRICAN AMERICAN > 60; HDL CHOLESTEROL 47 mg/dL (29-60)
[2018-08-13] MEDS ORDERED: Sodium Chloride 0.9% 1,000 ML IV SCH ×2 (07:28→12:00)
[2018-08-13 07:58] LABS: CK MB% 4.5 % (2.5-3.0); CK-MB 35.6 ng/mL (0.0-3.6)
--- NOTE | 2018-08-13 08:29 | US ---
HISTORY: Leg pain and swelling. Evaluate for DVT PHYSICIAN(S): Allen Cooper MD. TECHNIQUE: Duplex sonography and color-flow Doppler with graded compression were used to evaluate the deep venous systems of both lower extremities. FINDINGS: The visualized deep venous systems of both lower extremities are sonographically normal and compressible. Normal wave forms and augmentation are seen. There is no sonographic evidence for deep venous thrombosis in the visualized segments of both lower extremities. IMPRESSION: No sonographic evidence for deep venous thrombosis in the visualized segments of both lower extremities.
--- NOTE | 2018-08-13 08:42 | PN ---
DATE: 08/12/2018 SUBJECTIVE: I was called for a routine cardiology consult on the patient after I had left the hospital. I read the case on the [employer] database and apparently the patient was presented to the emergency room with persistent abdominal pain and was discharged to be readmitted. The first troponin that was done was negative and the second one was 3.14. I reviewed the workup that was done including the 12-lead EKG which revealed sinus arrhythmia at a rate of 71. The abdomen and pelvis CT scan that was performed earlier revealed borderline/mild hepatomegaly with fatty infiltration, findings consistent with mild fecal retention/constipation, slight wall thickening of the distal stomach/pyloric region likely due to peristalsis; however, inflammatory process involving the distal not excluded. The earlier EKG that was performed also revealed sinus rhythm. There was mentioning of nonspecific ST abnormality which was thought to be subtle anterior ST elevation, which had subsided on the repeat EKG. I did discuss the case with the medical team including and requested a stat 12-lead EKG which would be transmitted to me once it was performed, and also I have ordered stat aspirin and stat 5000 units of intravenous heparin as well as Coreg 3.125 mg twice a day with immediate transfer to telemetry. I also ordered PT, PTT, INR and D-dimer, and I will follow with the medical team. David Vera MD
--- NOTE | 2018-08-13 09:30 | CARD ---
APPROVED REPORT Date of service: 08/12/2018 EKG Measurement Heart [id number] <Conclusion> Normal sinus rhythm Possible inferior infarct, age undetermined Abnormal ECG
[2018-08-13] MEDS: POLYETHYLENE GLYCOL 3350 17 GM/Dose PACKET PO SCH ×2 (10:00→17:32)
[2018-08-13] MEDS ORDERED: Lidocaine 2% Inj (20ml) ONE (11:04)
[2018-08-13] MEDS ORDERED: Nitroglycerin 50mg in D5W 50 MG/250 ML BOTTLE IV ONE (11:05)
[2018-08-13] MEDS ORDERED: Iohexol 350mgl/ml 50 ML ONE (11:05)
[2018-08-13] MEDS ORDERED: Midazolam 2 MG/2 ML VIAL ONE (11:05)
[2018-08-13] MEDS ORDERED: Iodixanol 320 MG/ML 200 ML BOTTLE IV ONE (11:05)
[2018-08-13] MEDS ORDERED: Heparin 2,000 ML IV ONE (11:06)
[2018-08-13] MEDS ORDERED: Verapamil 2 ML ONE (11:06)
[2018-08-13] MEDS ORDERED: Eptifibatide 20 mg/10mL Inj IVP ONE (11:27)
[2018-08-13] MEDS: Eptifibatide 0.75 mg/ml 75 MG/100 ML BOTTLE IV SCH ×2 (11:30→17:00)
[2018-08-13] MEDS ORDERED: Flumazenil 0.1 mg/ml Inj (5ml) IVP ONE (11:31)
[2018-08-13] MEDS ORDERED: Eptifibatide 0.75 mg/ml 75 MG/100 ML BOTTLE IV ONE (11:41)
--- NOTE | 2018-08-13 12:11 | CT ---
Date of service: 08/13/2018 PROCEDURE: CT Chest with contrast (Pulmonary Angiogram) HISTORY: COMPARISON: None available. TECHNIQUE: Axial computed tomography images were obtained of the chest in the pulmonary arterial phase of enhancement. Coronal and sagittal reformatted images were created and reviewed. Intravenous contrast dose: 100 cc Visipaque 320 Mean Hounsfield value in the main pulmonary artery: 363.88 Radiation dose: Total exam DLP = 600.54 mGy-cm. This CT exam was performed using one or more of the following dose reduction techniques: Automated exposure control, adjustment of the mA and/or kV according to patient size, and/or use of iterative reconstruction technique. FINDINGS: PULMONARY ARTERIES: Unremarkable. No pulmonary embolism. AORTA: No acute findings. No thoracic aortic aneurysm. No atherosclerotic calcification or mural plaque present. LUNGS: Mild, dependent atelectasis lung bases. PLEURAL SPACES: Unremarkable. No effusion or pneumothorax. HEART: Unremarkable. No cardiomegaly. No significant pericardial effusion. LYMPH NODES: No lymphadenopathy. BONES, CHEST WALL: Unremarkable. No fracture or destructive lesion OTHER FINDINGS: Unremarkable. IMPRESSION: Unremarkable CT pulmonary angiogram. No pulmonary embolus. Concordant results (preliminary interpretation) provided by [employer]. Procedure Completed: 05:58. Preliminary Report: Dictated and Authenticated: 06:43. Final Interpretation: 09:40.
--- NOTE | 2018-08-13 13:58 | CPOSTOP ---
DATE: 08/13/2018 PHYSICIAN: Amarilys Clarke MD OIL FILTERS INSPECTOR: Rosa Shrestha BORDER GUARD TYPE OF ANTIBIOTICS: Moderate conscious sedation. Total 2 mg of Versed and 100 fentanyl given, later on 0.2 mg of Romazicon was given to reverse because the patient was very restless. PRE-PROCEDURE DIAGNOSIS: Unstable angina and [id number] myocardial infarction. PROCEDURE PERFORMED: 1. Left heart catheterization. 2. Stenting of proximal right coronary artery, totally occluded. FINDINGS: Single-vessel critical disease, RCA totally occluded. FINAL DIAGNOSIS: 1. One-vessel coronary artery disease, right coronary artery totally occluded. 2. Mildly decreased left ventricular function. POST PROCEDURE PATIENT CONDITION: Stable. VASCULAR ACCESS SITE: Left radial. CLOSURE DEVICE: TR band. TOTAL RADIATION DOSE: 89804.6 milligray unit. TOTAL FLUORO TIME: 6 minutes. Amarilys Clarke MD
[2018-08-13] MEDS: Nystatin 100,000 Units/gm Topical Pow(15 gm) TOP SCH (14:15)
--- NOTE | 2018-08-13 14:36 | CP.PCM.PN ---
<Ina Moon - Last Filed: 08/13/18 14:45> Subjective - Date & Time of Evaluation Date of Evaluation: 08/13/18 Time of Evaluation: 14:31 - Subjective Subjective: CRITICAL CARE PROGRESS NOTE FOR DR. GOSIA Moon PGY1 Pt seen and examined at bedside in ICU after returning from cardiac cath. Pt is resting comfortably. Denies 12 point ROS Drip: Eftifibatide 2mcg/kg/hr IVF @100mls/hr Objective - Vital Signs/Intake and Output Vital Signs (last 24 hours): Temp Pulse Resp BP Pulse Ox 98.2 F 58 L 18 104/63 98 08/13/18 12:13 08/13/18 12:58 08/13/18 12:58 08/13/18 09:00 08/13/18 12:58 - Medications Medications: Current Medications Aspirin (Aspirin Chewable) 81 mg PO DAILY [facility] Last Admin: 08/13/18 10:00 Dose: Not Given Atorvastatin Calcium (Lipitor) 20 mg PO DIN [facility] Last Admin: 08/12/18 16:32 Dose: 20 mg Carvedilol (Coreg) 3.125 mg PO BID [facility] Clopidogrel Bisulfate (Plavix) 75 mg PO DAILY [facility] Dopamine HCl/Dextrose (Dopamine 400mg/250ml D5w) 400 mg in 250 mls @ 17.01 mls/hr IV .[id number] PRN; Protocol PRN Reason: renal dose. Last Admin: 08/13/18 04:56 Dose: 5 mcg/kg/min, 17.01 mls/hr Sodium Chloride (Sodium Chloride 0.9%) 1,000 mls @ 100 mls/hr IV .Q10H [facility] Last Admin: 08/13/18 12:00 Dose: 100 mls/hr Eptifibatide (Integrilin) 75 mg in 100 mls @ 14.08 mls/hr IV .Q7H7M [facility]; Protocol Stop: 08/14/18 05:30 Lisinopril (Zestril) 2.5 mg PO DAILY [facility] Nitroglycerin (Nitro-Bid 2% Oint) 1 ea TOP BID [facility] Last Admin: 08/12/18 17:38 Dose: Not Given Nystatin (Nystop Topical Powder) 0 gm TOP Q12H [facility] Ondansetron HCl (Zofran Inj) 4 mg IVP Q6H PRN PRN Reason: Nausea/Vomiting Last Admin: 08/13/18 06:35 Dose: 4 mg Oxycodone/Acetaminophen (Percocet 5/325 Mg Tab) 1 tab PO Q4H PRN PRN Reason: Pain, moderate (4-7) Stop: 08/15/18 13:43 Pantoprazole Sodium (Protonix Inj) 40 mg IVP DAILY [facility] Last Admin: 08/13/18 09:16 Dose: 40 mg Polyethylene Glycol (Miralax) 17 gm PO BID [facility] Last Admin: 08/13/18 10:00 Dose: Not Given - Labs Labs: 08/13/18 06:00 08/13/18 06:00 PT 12.6 SECONDS (9.4-12.5) H 08/12/18 15:50 INR 1.14 08/12/18 15:50 APTT 47.2 Seconds (26.9-38.3) H 08/13/18 08:41 - Constitutional Appears: Well, Non-toxic, No Acute Distress - Head Exam Head Exam: NORMAL INSPECTION, NORMOCEPHALIC - Eye Exam Eye Exam: EOMI, Normal appearance - ENT Exam ENT Exam: Mucous Membranes Moist, Normal Exam - Neck Exam Neck Exam: Normal Inspection - Respiratory Exam Respiratory Exam: Clear to Ausculation Bilateral, NORMAL BREATHING PATTERN - Cardiovascular Exam Cardiovascular Exam: REGULAR RHYTHM, +S1, +S2 - GI/Abdominal Exam GI & Abdominal Exam: Soft. absent: Tenderness - Extremities Exam Extremities Exam: Normal Inspection. 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 Pt found to have elevated troponins without EKG changes. 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 Plan: CAD s/p RCA stent continue integrilin drip x 18 hours continue ASA/plavix/statin/b-marce/ACEi tomorrow f/u echo Appreciate cardiology recs Thrombocytpenia Likely chronic s/p 1u platelets pheresis questionable history of ITP Pt had followed with Dr. Goss previously, Heme on consult Gastritis, Nausea, Vomiting continue famotidine 20mg IV BID continue protonix 40mg IV daily continue zofran 4mg IV q6h prn N/V GI/Surgery consulted- appreciate recommendations Elevated D-dimer CTA negative for PE DVT/GI PPx: SCD/Protonix Case seen, examined and discused with attending physician, Dr. Gosia Moon PGY1 <Rosibel Elise - Last Filed: 08/13/18 16:07> Objective - Vital Signs/Intake and Output Vital Signs (last 24 hours): Temp Pulse Resp BP Pulse Ox 98.2 F 64 22 107/68 99 08/13/18 12:13 08/13/18 14:30 08/13/18 14:30 08/13/18 14:30 08/13/18 14:30 - Medications Medications: Current Medications Aspirin (Aspirin Chewable) 81 mg PO DAILY [facility] Last Admin: 08/13/18 10:00 Dose: Not Given Atorvastatin Calcium (Lipitor) 20 mg PO DIN [facility] Last Admin: 08/12/18 16:32 Dose: 20 mg Carvedilol (Coreg) 3.125 mg PO BID [facility] Clopidogrel Bisulfate (Plavix) 75 mg PO DAILY [facility] Dopamine HCl/Dextrose (Dopamine 400mg/250ml D5w) 400 mg in 250 mls @ 17.01 mls/hr IV .[id number] PRN; Protocol PRN Reason: renal dose. Last Admin: 08/13/18 04:56 Dose: 5 mcg/kg/min, 17.01 mls/hr Sodium Chloride (Sodium Chloride 0.9%) 1,000 mls @ 100 mls/hr IV .Q10H [facility] Last Admin: 08/13/18 12:00 Dose: 100 mls/hr Eptifibatide (Integrilin) 75 mg in 100 mls @ 14.08 mls/hr IV .Q7H7M [facility]; Protocol Stop: 08/14/18 05:30 Last Admin: 08/13/18 11:30 Dose: 14.08 mls/hr Lisinopril (Zestril) 2.5 mg PO DAILY [facility] Nitroglycerin (Nitro-Bid 2% Oint) 1 ea TOP BID [facility] Last Admin: 08/12/18 17:38 Dose: Not Given Nystatin (Nystop Topical Powder) 0 gm TOP Q12H [facility] Last Admin: 08/13/18 14:15 Dose: 1 applic Ondansetron HCl (Zofran Inj) 4 mg IVP Q6H PRN PRN Reason: Nausea/Vomiting Last Admin: 08/13/18 06:35 Dose: 4 mg Oxycodone/Acetaminophen (Percocet 5/325 Mg Tab) 1 tab PO Q4H PRN PRN Reason: Pain, moderate (4-7) Stop: 08/15/18 13:43 Pantoprazole Sodium (Protonix Inj) 40 mg IVP DAILY [facility] Last Admin: 08/13/18 09:16 Dose: 40 mg Polyethylene Glycol (Miralax) 17 gm PO BID [facility] Last Admin: 08/13/18 10:00 Dose: Not Given - Labs Labs: 08/13/18 06:00 08/13/18 06:00 PT 12.6 SECONDS (9.4-12.5) H 08/12/18 15:50 INR 1.14 08/12/18 15:50 APTT 47.2 Seconds (26.9-38.3) H 08/13/18 08:41 Addendum Addendum: 08/13/18 16:07 ICU Attending Addendum Patient seen and examined. Case reviewed on round with housestaff. 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
--- NOTE | 2018-08-13 14:37 | CARD ---
APPROVED REPORT Date of service: 08/13/2018 EKG Measurement Heart [id number] <Conclusion> Sinus bradycardia Inferior infarct, age undetermined Abnormal ECG
--- NOTE | 2018-08-13 15:20 | CARD ---
APPROVED REPORT Date of service: 08/13/2018 Procedure(s) performed: Left Heart Catheterization PTCA with Stenting of Proximal RCA with BMS ( bare metal stent) HISTORY The patient is a 57 year-old male with a history of : dyslipidemia , Hx of Gastritis, ITP, admitted with abdominal pain NSTEMI. INDICATION The indication(s) include : non-STEMI . CASE TECHNIQUE The patient was brought urgently to the Cardiac Catheterization Laboratory in a fasting state and was prepped and draped in a sterile manner. The left wrist was infiltrated with 2% Lidocaine subcutaneous anesthesia. A 6FR GLIDESAudiodraftTH ACCESS KIT sheath was inserted into the left radial artery without difficulty. Coronary angiography was performed using coronary diagnostic catheters. The left coronary system was accessed and visualized with a Diagnostic ,6F JL4 CATH DXT 100 CM catheter. The right coronary system was accessed and visualized with a Diagnostic ,6F JR 4 CATH DXT 100 CM catheter. The left ventricle was accessed and visualized with a 6 Fr JR 4 catheter. Left ventricular/Aortic Valve gradient assessed on pullback. Left ventriculogram was performed in LOWERY projection. The patient tolerated the procedure well and there were no complications associated with the procedure. Vessel Analysis The patient's coronary anatomy is right dominant. The left main coronary artery is a medium size vessel without significant stenosis. The left main bifurcates to the left anterior descending and circumflex. The left anterior descending artery is a medium size vessel with intimal irregularities and without significant stenosis. The first diagonal branch is a medium size vessel with intimal irregularities and without significant stenosis. The circumflex artery is a large size vessel with intimal irregularities and without significant stenosis. The first obtuse marginal branch is a small size vessel with intimal irregularities and without significant stenosis. The second obtuse marginal branch is a large size vessel with intimal irregularities and without significant stenosis. The right coronary artery is a large size vessel with diffuse calcification noted throughout this vessel and with significant stenosis. There is a 100% stenosis in the proximal segment. Left Ventricle The left ventricle is borderline in size with moderately decreased contractility. Ischemic cardiomyopathy. The left ventricular ejection fraction is estimated to be 35%. The left ventricular end diastolic pressure is 20 mmHg. There was no gradient across the aortic valve upon pullback. PCI Technique Lesion Anticoagulation was achieved with Heparin and integrellin Bolluses and Infusion. Percutaneous coronary intervention was performed on the proximal right coronary artery. The lesion stenosis prior to intervention was 100% with CLAYTON 0 flow. A 6 Fr JR 4 Guide Catheter was used to engage the ostium. A Luge 182 Interventional Guidewire was used to cross the lesion. BALLOON DILATION A Balloon catheter 2.5 x 12 mm Sprinter RX was inserted and inflated up to 8atm for 20seconds. Sprinter Balloon PTCA done after pulling blood clot with Pronto catheter . STENT DEPLOYMENT A bare metal stent 3.0 x 12 mm Vision BMS was inserted and inflated up to 14atm for 20seconds. Final angiography reveals 0 % stenosis with CLAYTON 3 flow. PCI Technique Lesion 2 Percutaneous Coronary Intervention was performed on the proximal right coronary artery. Conclusion Critical one Vessel CAD ,Prtoximal RCA 100% occluded. Decreased Lv FX, EF-35%, EDP-18-20 ( Acute SC) Successful PTCA with BMS of RCA after pulling blood clot from RCA. BMS ( Bare meta stent ) used b/c pt has ITP and runs plts around 50-60K, and for shorter duration of Dual anti platelets therapy. Recommendations Aggressive Medical TherapyCardiac Risk Reduction Program ASA 81 mg and Plavix 75 mg po daily mandatory for one month, preferably for one year if can be tolerated. Coreg, VARSHA, and Statin, Reassess Lv Fx in 3-6 months for Need of AICD. Cc; Drs. Nina/ Rupali Goss
[2018-08-13] MEDS ORDERED: Bacitracin 500 Units/gm Oint Foilpak UD TOP STA (16:28)
[2018-08-13 16:38] LABS: HEMOGLOBIN 12.7 g/dL (14.0-18.0); LYMPH # 0.9 (1.2-3.4); LYMPH % 17.4 % (22.0-35.0); MEAN CELL VOLUME 88.2 fl (80.0-105.0); MEAN CORPUSCULAR HEMOGLOBIN 30.5 pg (25.0-35.0); MEAN CORPUSCULAR HGB CONC 34.6 g/dl (31.0-37.0); MEAN PLATELET VOLUME 9.2 fl (7.0-11.0); MONO # 0.5 (0.1-0.6); MONO % 9.4 % (1.0-6.0); RBC 4.16 10^6/uL (3.5-6.1); RED CELL DISTRIBUTION WIDTH 12.6 % (11.5-14.5); WHITE BLOOD COUNT 5.2 10^3/uL (4.5-11.0)
[2018-08-13 16:48] LABS: BLOOD UREA NITROGEN 18 mg/dL (7-21); CALCIUM 8.6 mg/dL (8.4-10.5); GFR NON-AFRICAN AMERICAN > 60
--- NOTE | 2018-08-13 16:51 | CARD ---
APPROVED REPORT Date of service: 08/13/2018 EXAM: Two-dimensional and M-mode echocardiogram with Doppler and color Doppler. INDICATION Non STEMI 2D DIMENSIONS Left Atrium (2D)3.7 (1.6-4.0cm)IVSd0.9 (0.7-1.1cm) LVDd3.9 (3.9-5.9cm)PWd1.1 (0.7-1.1cm) LVDs2.9 (2.5-4.0cm)FS (%) 25.2 % LVEF (%)50.4 (>50%) M-Mode DIMENSIONS Aortic Root3.70 (2.2-3.7cm)Aortic Cusp Exc.2.20 (1.5-2.0cm) Aortic Valve AoV Peak Bwpobffk226.0cm/Amandeep Peak GR.4mmHg Mitral Valve MV E Hbemapxe14.5cm/sMV A Rwyfnedx31.8cm/sE/A ratio0.8 TDI Lateral E' Peak V11.10cm/sMedial E' Peak V9.75cm/sE/Lateral E'7.0 E/Medial E'7.9 Pulmonary Valve PV Peak Geypzgmb31.6cm/sPV Peak Grad.2mmHg Tricuspid Valve TR Peak Rpdbyung923sd/sRAP [id number] Peak Gr.16mmHg [id number] LEFT VENTRICLE The left ventricle is normal size. There is normal left ventricular wall thickness. The systolic function is mildly impaired.EF-45-50% There is mild to moderate hypokinesis in the mid-inferolateral wall. The left ventricular diastolic function is normal. No left ventricle thrombus noted on this study. There is no ventricular septal defect visualized. There is no left ventricular aneurysm. There is no mass noted in the left ventricle. RIGHT VENTRICLE The right ventricle is borderline dilated. There is normal right ventricular wall thickness. Systolic function is mildly reduced. ATRIA The left atrium size is normal. The right atrium size is normal. The interatrial septum is intact with no evidence for an atrial septal defect. AORTIC VALVE The aortic valve is thickened but opens well. No aortic regurgitation is present. There is no aortic valvular stenosis. There is no aortic valvular vegetation. MITRAL VALVE The mitral valve is thickened but opens well. Mitral regurgitation is mild to moderate. There is no mitral valve stenosis. There is no evidence of mitral valve prolapse. TRICUSPID VALVE The tricuspid valve leaflets are thickened , but open well. There is trace to mild tricuspid regurgitation.RVSP-26 mmof hg. There is no tricuspid valve stenosis. There is no tricuspid valve prolapse or vegetation. PULMONIC VALVE The pulmonary valve is normal in structure. There is no pulmonic valvular regurgitation. There is no pulmonic valvular stenosis. GREAT VESSELS The aortic root is normal in size. The ascending aorta is normal in size. The pulmonary artery is normal. The IVC is normal in size and collapses >50% with inspiration. PERICARDIAL EFFUSION There is no pleural effusion. There is no pericardial effusion. <Conclusion> Normal chamber Size. EF-45-50% There is mild to moderate hypokinesis in the mid-inferolateral wall. Mitral regurgitation is mild to moderate. There is trace to mild tricuspid regurgitation.RVSP-26 mmof hg. The IVC is normal in size and collapses >50% with inspiration. There is no pericardial effusion. s/p NSTEMI and S/p PTCA of totally occluded RCA.
[2018-08-13 18:05] LABS: CK MB% 3.4 % (2.5-3.0); CK-MB 23.2 ng/mL (0.0-3.6)
--- NOTE | 2018-08-13 18:24 | CP.PCM.CON ---
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 Pt states that the onset was 1-2 days prior to arrival. He notes that the pain started in the epigastrum and left of the lower parasternal border. Pt states that the pain was achy characteristic. He denies any alleviating or aggravating factors. Pt states that he came to the ER for further eval. Pt was found to have elevated troponins and GI was consulted for evaluation of starting antiplatlet and heparin in the setting of hx of gastritis. Pt was started on plavix, heparin, and ASA. Pt underwent cardiac cath and was found to have a total RCA block. PMHx: Gastritis, GERD, Back pain, Anal fissures PSHx: Tonsillectomy (40 years ago), Anal fissures (25 years ago), Varicocele FHx: Denies SHx: No tobacco or drug use, rare EtOH use Endo hx: reports EGD ansd colonosccopy 2-3 years ago 12 point ROS conducted, neg other than above Past Patient History - Infectious Disease Hx of Infectious Diseases: None - Tetanus Immunizations Tetanus Immunization: Unknown - Past Social History Smoking Status: Never Smoked - CARDIAC Hx Cardiac Disorders: No Hx Angina: No Hx Cardia Arrhythmia: No Hx Circulatory Problems: No Hx Congestive Heart Failure: No Hx Heart Murmur: No Hx Heart Transplant: No Hx Hypercholesterolemia: No Hx Hypertension: No Hx Internal Defibrillator: No Hx Mitral Valve Prolapse: No Hx Pacemaker: No Hx Peripheral Edema: No Hx Peripheral Vascular Disease: No - PULMONARY Hx Respiratory Disorders: No Hx Asthma: No Hx Bronchitis: No Hx Chronic Obstructive Pulmonary Disease (COPD): No Hx Emphysema: No Hx Pneumonia: No Hx Respiratory Aspiration: No Hx Respiratory Tract Infection: No Hx Sleep Apnea: No Hx Tuberculosis: No - NEUROLOGICAL Hx Neurological Disorder: No Hx Alzheimer's Disease: No HX Cerebrovascular Accident: No Hx Dementia: No Hx Dizziness: No Hx Meningitis: No Hx Migraine: No Hx Parkinson's Disease: No Hx Seizures: No Hx Transient Ischemic Attacks (TIA): No - HEENT Hx HEENT Problems: No Hx Blind: No Hx Cataracts: No Hx Deafness: No Hx Difficulty Chewing: No Hx Epistaxis: No Hx Glaucoma: No Hx Macular Degeneration: No - RENAL Hx Chronic Kidney Disease: No Hx Dialysis: No Hx Kidney Stones: No Hx Neurogenic Bladder: No Hx Pyelonephritis: No Hx Renal (Kidney) Cancer: No Hx Renal Failure: No - ENDOCRINE/METABOLIC Hx Endocrine Disorders: No Hx Adrenal Cancer: No Hx Diabetes Insipidus: No Hx Diabetes Mellitus Type 1: No Hx Diabetes Mellitus Type 2: No Hx Hyperthyroidism: No Hx Hypothyroidism: No Hx Systemic Lupus Erythematosus: No - HEMATOLOGICAL/ONCOLOGICAL Hx Blood Disorders: No Hx AIDS: No Hx Anemia: No Hx Cancer: No Hx Chemotherapy: No Hx Cirrhosis: No Hx Hemophilia: No Hx Hepatitis A: No Hx Hepatitis B: No Hx Hepatitis C: No Hx Human Immunodeficiency Virus (HIV): No Hx Metastesis: No Hx Shingles: No Hx Sickle Cell Disease: No Hx Unexplained Bleeding: No - INTEGUMENTARY Hx Dermatological Problems: No Hx Basil Cell: No Hx Eczema: No Hx Melanoma: No Hx Psoriasis: No Hx Squamous Cell: No - MUSCULOSKELETAL/RHEUMATOLOGICAL Hx Musculoskeletal Disorders: No Hx Arthritis: No Hx Back Pain: No Hx Degenerative Joint Disease: No Hx Falls: No Hx Fractures: No Hx Gout: No Hx Herniated Disk: No Hx Myasthenia Gravis: No Hx Osteoarthritis: No Hx Osteomyelitis: No Hx Osteoporosis: No Hx Rhabdomyolysis: No Hx Spinal Stenosis: No Hx Unsteady Gait: No - GASTROINTESTINAL Hx Gastrointestinal Disorders: Yes Hx Colostomy: No Hx Crohn's Disease: No Hx Diverticulitis: No Hx Gall Bladder Disease: No Hx Gastroesophageal Reflux: Yes Hx Ileostomy: No Hx Liver Failure: No Hx Pancreatitis: No HX Swallowing Problems: No Hx Ulcer: No - GENITOURINARY/GYNECOLOGICAL Hx Genitourinary Disorders: No Hx Hematuria: No Hx Incontinence: No Hx Prostate Problems: No Hx Sexually Transmitted Disorders: No Hx Urinary Tract Infection: No - PSYCHIATRIC Hx Psychophysiologic Disorder: No Hx Anxiety: Yes (alprazolam) Hx Bipolar Disorder: No Hx Depression: No Hx Emotional Abuse: No Hx Hallucinations: No Hx Panic Symptoms: No Hx Paranoia: No Hx Post Traumatic Stress Disorder: No Hx Psychosis: No Hx Physical Abuse: No Hx Schizophrenia: No Hx Sexual Abuse: No Hx Substance Use: No - SURGICAL HISTORY Hx Surgeries: Yes (tonsillectomy/ anal fissure (20 years ago)) Hx Amputation: No Hx Appendectomy: No Hx Cardiac Catheterization: No Hx Cholecystectomy: No Hx Coronary Stent: No Hx Gastric Bypass Surgery: No Hx Hysterectomy: No Hx Joint Replacement: No Hx Kidney Transplant: No Hx Liver Transplant: No Hx Mastectomy: No Hx Musculoskeletal Surgery: No Hx Open Heart Surgery: No Hx Orthopedic Surgery: No Hx Splenectomy: No Hx Valve Replacement: No - ANESTHESIA Hx Anesthesia: Yes Hx Anesthesia Reactions: No Meds Allergies/Adverse Reactions: Allergies Allergy/AdvReac Type Severity Reaction Status Date / Time novalgine Allergy ANAPHYLAXIS Uncoded 08/12/18 10:58 - Medications Medications: Current Medications Aspirin (Aspirin Chewable) 81 mg PO DAILY [facility] Last Admin: 08/13/18 10:00 Dose: Not Given Atorvastatin Calcium (Lipitor) 20 mg PO DIN [facility] Last Admin: 08/13/18 17:26 Dose: 20 mg Carvedilol (Coreg) 3.125 mg PO BID [facility] Clopidogrel Bisulfate (Plavix) 75 mg PO DAILY [facility] Dopamine HCl/Dextrose (Dopamine 400mg/250ml D5w) 400 mg in 250 mls @ 17.01 mls/hr IV .[id number] PRN; Protocol PRN Reason: renal dose. Last Admin: 08/13/18 04:56 Dose: 5 mcg/kg/min, 17.01 mls/hr Sodium Chloride (Sodium Chloride 0.9%) 1,000 mls @ 100 mls/hr IV .Q10H [facility] Last Admin: 08/13/18 12:00 Dose: 100 mls/hr Eptifibatide (Integrilin) 75 mg in 100 mls @ 14.08 mls/hr IV .Q7H7M [facility]; Protocol Stop: 08/14/18 05:30 Last Admin: 08/13/18 17:00 Dose: 14.08 mls/hr Lisinopril (Zestril) 2.5 mg PO DAILY [facility] Nitroglycerin (Nitro-Bid 2% Oint) 1 ea TOP BID [facility] Last Admin: 08/12/18 17:38 Dose: Not Given Nystatin (Nystop Topical Powder) 0 gm TOP Q12H [facility] Last Admin: 08/13/18 14:15 Dose: 1 applic Ondansetron HCl (Zofran Inj) 4 mg IVP Q6H PRN PRN Reason: Nausea/Vomiting Last Admin: 08/13/18 06:35 Dose: 4 mg Oxycodone/Acetaminophen (Percocet 5/325 Mg Tab) 1 tab PO Q4H PRN PRN Reason: Pain, moderate (4-7) Stop: 08/15/18 13:43 Pantoprazole Sodium (Protonix Inj) 40 mg IVP DAILY [facility] Last Admin: 08/13/18 09:16 Dose: 40 mg Polyethylene Glycol (Miralax) 17 gm PO BID [facility] Last Admin: 08/13/18 17:32 Dose: Not Given Physical Exam - Constitutional Appears: Well, No Acute Distress - Head Exam Head Exam: ATRAUMATIC, NORMOCEPHALIC - Eye Exam Eye Exam: Normal appearance - ENT Exam ENT Exam: Mucous Membranes Moist, Normal Exam - Neck Exam Neck exam: Positive for: Normal Inspection - Respiratory Exam Respiratory Exam: Clear to Auscultation Bilateral, NORMAL BREATHING PATTERN. absent: Rales, Rhonchi, Wheezes, Respiratory Distress - Cardiovascular Exam Cardiovascular Exam: REGULAR RHYTHM, +S1, +S2 - GI/Abdominal Exam GI & Abdominal Exam: Normal Bowel Sounds, Soft. absent: Diminished Bowel Soun ds, Firm, Guarding, Hernia, Rigid, Tenderness - Extremities Exam Extremities exam: Negative for: joint swelling, pedal edema - Neurological Exam Neurological exam: Alert, Oriented x3 - Psychiatric Exam Psychiatric exam: Normal Affect, Normal Mood - Skin Skin Exam: Dry, Intact, Normal Color, Warm Results - Vital Signs Recent Vital Signs: Last Vital Signs Temp 98.2 F 08/13/18 12:13 Pulse 66 08/13/18 16:00 Resp 20 08/13/18 16:00 BP 107/68 08/13/18 14:30 Pulse Ox 98 08/13/18 16:00 - Labs Result Diagrams: 08/13/18 16:00 08/13/18 16:00 Labs: Laboratory Results - last 24 hr 08/12/18 08/12/18 08/13/18 18:00 18:00 00:18 WBC RBC Hgb Hct MCV MCH MCHC RDW Plt Count MPV Neut % (Auto) Lymph % (Auto) Butts % (Auto) Eos % (Auto) Baso % (Auto) Lymph # (Auto) Butts # (Auto) Eos # (Auto) Baso # (Auto) Absolute Neuts (auto) APTT Sodium Potassium Chloride Carbon Dioxide Anion Gap BUN Creatinine Est GFR ( Amer) Est GFR (Non-Af Amer) Random Glucose Hemoglobin A1c Calcium Magnesium Total Bilirubin AST ALT Alkaline Phosphatase Lactate Dehydrogenase 484 597 Total Creatine Kinase 626 H 784 H CK-MB (CK-2) 43.2 H 43.0 H CK-MB (CK-2) % 6.9 H 5.5 H Troponin I 8.96 H* D 21.10 H* D Total Protein Albumin Globulin Albumin/Globulin Ratio Triglycerides Cholesterol LDL Cholesterol Direct HDL Cholesterol Free T4 TSH 3rd Generation Blood Type Confirm B POSITIVE 08/13/18 08/13/18 08/13/18 06:00 06:00 06:00 WBC 5.6 RBC 4.26 Hgb 13.1 L Hct 37.5 L MCV 88.0 MCH 30.8 MCHC 34.9 RDW 12.8 Plt Count 64 L MPV 9.9 Neut % (Auto) 61.4 Lymph % (Auto) 26.8 Butts % (Auto) 11.4 H Eos % (Auto) 0.2 L Baso % (Auto) 0.2 Lymph # (Auto) 1.5 Butts # (Auto) 0.6 Eos # (Auto) 0.0 Baso # (Auto) 0.01 Absolute Neuts (auto) 3.46 APTT Sodium 138 Potassium 4.4 Chloride 106 Carbon Dioxide 27 Anion Gap 10 BUN 21 Creatinine 0.9 Est GFR ( Amer) > 60 Est GFR (Non-Af Amer) > 60 Random Glucose 160 H Hemoglobin A1c 5.9 Calcium 8.8 Magnesium 2.4 H Total Bilirubin 1.1 AST 145 H D ALT 68 H Alkaline Phosphatase 70 Lactate Dehydrogenase 740 H Total Creatine Kinase 791 H CK-MB (CK-2) 35.6 H CK-MB (CK-2) % 4.5 H Troponin I 20.00 H* Total Protein 6.8 Albumin 3.9 Globulin 2.9 Albumin/Globulin Ratio 1.4 Triglycerides 118 Cholesterol 125 L LDL Cholesterol Direct 63 HDL Cholesterol 47 Free T4 TSH 3rd Generation Blood Type Confirm 08/13/18 08/13/18 08/13/18 06:00 08:41 16:00 WBC RBC Hgb Hct MCV MCH MCHC RDW Plt Count MPV Neut % (Auto) Lymph % (Auto) Butts % (Auto) Eos % (Auto) Baso % (Auto) Lymph # (Auto) Butts # (Auto) Eos # (Auto) Baso # (Auto) Absolute Neuts (auto) APTT 47.2 H Sodium 138 Potassium 4.2 Chloride 107 Carbon Dioxide 26 Anion Gap 9 L BUN 18 Creatinine 0.7 L Est GFR ( Amer) > 60 Est GFR (Non-Af Amer) > 60 Random Glucose 187 H Hemoglobin A1c Calcium 8.6 Magnesium Total Bilirubin AST ALT Alkaline Phosphatase Lactate Dehydrogenase 872 H Total Creatine Kinase 689 H CK-MB (CK-2) 23.2 H CK-MB (CK-2) % 3.4 H Troponin I 19.30 H* Total Protein Albumin Globulin Albumin/Globulin Ratio Triglycerides Cholesterol LDL Cholesterol Direct HDL Cholesterol Free T4 0.99 TSH 3rd Generation 0.38 L Blood Type Confirm 08/13/18 16:00 WBC 5.2 RBC 4.16 Hgb 12.7 L Hct 36.7 L MCV 88.2 MCH 30.5 MCHC 34.6 RDW 12.6 Plt Count 57 L MPV 9.2 Neut % (Auto) 73.2 H Lymph % (Auto) 17.4 L Butts % (Auto) 9.4 H Eos % (Auto) 0.0 L Baso % (Auto) 0.0 Lymph # (Auto) 0.9 L Butts # (Auto) 0.5 Eos # (Auto) 0.0 Baso # (Auto) 0.00 Absolute Neuts (auto) 3.82 APTT Sodium Potassium Chloride Carbon Dioxide Anion Gap BUN Creatinine Est GFR ( Amer) Est GFR (Non-Af Amer) Random Glucose Hemoglobin A1c Calcium Magnesium Total Bilirubin AST ALT Alkaline Phosphatase Lactate Dehydrogenase Total Creatine Kinase CK-MB (CK-2) CK-MB (CK-2) % Troponin I Total Protein Albumin Globulin Albumin/Globulin Ratio Triglycerides Cholesterol LDL Cholesterol Direct HDL Cholesterol Free T4 TSH 3rd Generation Blood Type Confirm Assessment & Plan - Assessment and Plan (Free Text) Assessment: Marisel Hinojosa is a 57M w/ hx of gastritis who came to the ER with abd and chest pain Atypical Abd pain, etiology likely 2/2 ACS Chest Pain 2/2 ACS Total RCA Stenosis hx of gastritis Plan: -continue ASA, Plavix, heparin as per cardiology. -no indication for GI procedure at this time -continue PPI, Protonix 40mg daily -Continue to monitor hgb -will eventually benefit from oupt EGD, 6months post cath D/W Dr. Crocker <Yessica Crocker V - Last Filed: 08/14/18 22:53> Meds - Medications Medications: Current Medications Aspirin (Aspirin Chewable) 81 mg PO DAILY [facility] Last Admin: 08/14/18 09:17 Dose: 81 mg Atorvastatin Calcium (Lipitor) 20 mg PO DIN [facility] Last Admin: 08/14/18 17:24 Dose: 20 mg Carvedilol (Coreg) 3.125 mg PO BID [facility] Last Admin: 08/14/18 17:27 Dose: Not Given Clopidogrel Bisulfate (Plavix) 75 mg PO DAILY [facility] Last Admin: 08/14/18 09:17 Dose: 75 mg Lisinopril (Zestril) 2.5 mg PO DAILY [facility] Last Admin: 08/14/18 09:17 Dose: 2.5 mg Nystatin (Nystop Topical Powder) 0 gm TOP Q12 [facility] Last Admin: 08/14/18 22:11 Dose: 100,000 gm Ondansetron HCl (Zofran Inj) 4 mg IVP Q6H PRN PRN Reason: Nausea/Vomiting Last Admin: 08/13/18 06:35 Dose: 4 mg Oxycodone/Acetaminophen (Percocet 5/325 Mg Tab) 1 tab PO Q4H PRN PRN Reason: Pain, moderate (4-7) Stop: 08/15/18 13:43 Pantoprazole Sodium (Protonix Ec Tab) 40 mg PO ACB [facility] Polyethylene Glycol (Miralax) 17 gm PO BID [facility] Last Admin: 08/14/18 17:25 Dose: Not Given Results - Vital Signs Recent Vital Signs: Last Vital Signs Temp 97.7 F 08/14/18 19:00 Pulse 77 08/14/18 18:10 Resp 14 08/14/18 18:10 BP 97/63 L 08/14/18 18:00 Pulse Ox 95 08/14/18 18:00 - Labs Result Diagrams: 08/14/18 05:40 08/14/18 05:40 Labs: Laboratory Results - last 24 hr 08/14/18 08/14/18 08/14/18 05:40 05:40 05:40 WBC 5.4 RBC 4.16 Hgb 12.8 L Hct 36.6 L MCV 88.0 MCH 30.8 MCHC 35.0 RDW 12.6 Plt Count 57 L MPV 10.1 Neut % (Auto) 67.9 Lymph % (Auto) 20.8 L Butts % (Auto) 10.9 H Eos % (Auto) 0.2 L Baso % (Auto) 0.2 Lymph # (Auto) 1.1 L Butts # (Auto) 0.6 Eos # (Auto) 0.0 Baso # (Auto) 0.01 Absolute Neuts (auto) 3.66 Sodium 136 Potassium 4.1 Chloride 106 Carbon Dioxide 28 Anion Gap 7 L BUN 19 Creatinine 0.8 Est GFR ( Amer) > 60 Est GFR (Non-Af Amer) > 60 Random Glucose 154 H Hemoglobin A1c 5.8 Calcium 8.3 L Phosphorus 2.6 Magnesium 2.1 Total Bilirubin 1.5 H AST 129 H ALT 128 H Alkaline Phosphatase 62 Lactate Dehydrogenase 1003 H Total Creatine Kinase 353 H CK-MB (CK-2) 6.9 H CK-MB (CK-2) % 2.0 L Troponin I 9.21 H* D Total Protein 5.9 Albumin 3.4 Globulin 2.5 Albumin/Globulin Ratio 1.4 Attending/Attestation - Attestation I have personally seen and examined this patient.: Yes I have fully participated in the care of the patient.: Yes I have reviewed all pertinent clinical information: Yes Notes (Text): This is a delayed addendum to GI consult report dictated by the GI Fellow.The patient was seen and examined earlier. Medical records, lab studies, imagings were reviewed. Last 24 hours events reviewed. Agreed with the above treatment plan as outlined in GI Fellow 's notes with the addition of the following 08/14/18 22:53
--- NOTE | 2018-08-13 19:18 | CON ---
DATE: 08/13/2018 REASON FOR CONSULTATION: [id number] myocardial infarction; admitted with abdominal pain. BRIEF CLINICAL HISTORY: A 57-year-old male with past medical history of idiopathic thrombocytopenic purpura, being followed by Dr. Goss; history of H. pylori; and history of gastritis, who came with abdominal pain. Initial CAT scan of the abdomen was done and was negative, but later on the patient started vomiting and the troponin was sent. The first troponin came out 8.96 and so patient was admitted for non-STEMI, seen by Dr. Vera; 5000 heparin was given. Later on I was called, I gave 30 mg of Lovenox, but later on the patient developed more vomiting and nausea, and the troponin went up to 21, though EKG did not show any acute ST-T changes. So heparin was started, the patient moved to ICU. First, the patient was moved from 5R to telemetry and the telemetry to ICU. Later on, the troponin came with 21 and the repeat troponin this morning is trending now to 20. I saw the patient this morning, comfortable, still complaining of left lower quadrant pain below the rib cage. 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 No history of significant coronary artery disease. PAST MEDICAL HISTORY: Significant for idiopathic thrombocytopenic purpura, being followed by Dr. Goss; and his platelets run between 60 and 70 thousand. Never history of bleeding. No history of trauma or any platelet transfusion in the past. SOCIAL HISTORY: Denies any smoking. Denies any history of alcohol abuse. CURRENT MEDICATIONS: The patient is taking omeprazole 40 mg and Xanax 0.25 mg p.r.n. ALLERGIES: ALLERGY TO NOVALGIN, GET ANAPHYLACTIC IN [place]. REVIEW OF SYSTEMS: As per HPI. PHYSICAL EXAMINATION: VITAL SIGNS: Height 5 feet 7 inches, weight of the patient 194 pounds, and body mass index 30 kg/m2. Rest of the vitals; temperature afebrile, heart rate 73, and blood pressure 104/62. HEENT: PERRLA. Extraocular muscles intact. NECK: Supple. No carotid bruit or thyromegaly. CHEST: Clear to auscultation. HEART: S1 and S2 regular. ABDOMEN: Soft. Left lower quadrant mild tenderness noted below the rib cage. No complaint of chest pain. Nontender. EXTREMITIES: Clubbing and cyanosis negative. LABORATORY DATA: Blood workup; WBC 5.6, hemoglobin 13, hematocrit 37.5, and platelet count 64. Chemistry shows sodium 130, potassium 4.4, chloride 106, carbon dioxide 27, anion gap 10, BUN 21, and creatinine 0.9. Total CPK 791, MB fraction 4.9, and troponin 20. Total protein 6.8, albumin 3, and albumin-globulin ratio 1.4. Total cholesterol 118, LDL 125, HDL 47, and LDL 63. First EKG; normal sinus and normal EKG. IMPRESSION AND PLAN: A 57-year-old male with a past medical history significant for gastritis and idiopathic thrombocytopenic purpura, admitted with abdominal pain. Troponin found to be 8, later on repeat troponin 21 though the patient denies any chest pain, shortness of breath, or any palpitation. The patient was started on heparin this morning. Multiple times spoke to night nurse at 6 p.m., 12 a.m., and 5 a.m. this morning. The resident is taking care of the patient, started heparin and plan is to give as per Dr. Goss single-donor 10 units of platelet and then we will do the cardiac catheterization. Risk, benefit, and alternative were discussed with the patient but also I spoke to the family. Though the patient's troponin is positive, but negative so far for the chest pain. The patient also went to CT chest supervisor polishing at 6 a.m., we are waiting for the result. We will follow with you and continue IV hydration. Continue aspirin. Continue Plavix 75 mg stat and aspirin stat. We will follow with you. We will continue carvedilol. We will hold heparin now for cardiac catheterization. Further recommendation depending upon the hospital course. We will follow with you. Thank you Dr. Nina for providing us the opportunity in taking care of the patient, Marisel Olivo. Amarilys Clarke MD
--- NOTE | 2018-08-13 21:29 | CARD ---
APPROVED REPORT Date of service: 08/13/2018 EKG Measurement Heart [id number] <Conclusion> Normal sinus rhythm Possible Inferior infarct, age indeterminate Abnormal ECG
[2018-08-13 22:13] LABS: BASO # 0.01 K/mm3 (0.0-2.0); BASO % 0.2 % (0.0-3.0); EOS % 0.4 % (1.5-5.0); LYMPH # 1.2 (1.2-3.4); LYMPH % 25.5 % (22.0-35.0); MEAN CELL VOLUME 88.3 fl (80.0-105.0); MEAN CORPUSCULAR HEMOGLOBIN 30.6 pg (25.0-35.0); MEAN CORPUSCULAR HGB CONC 34.7 g/dl (31.0-37.0); MEAN PLATELET VOLUME 9.1 fl (7.0-11.0); MONO # 0.7 (0.1-0.6); MONO % 13.8 % (1.0-6.0); RBC 3.92 10^6/uL (3.5-6.1); RED CELL DISTRIBUTION WIDTH 12.7 % (11.5-14.5); WHITE BLOOD COUNT 4.8 10^3/uL (4.5-11.0)
--- NOTE | 2018-08-13 23:38 | CARD ---
APPROVED REPORT Date of service: 08/13/2018 EKG Measurement Heart [id number] <Conclusion> Sinus bradycardia Otherwise normal ECG
[2018-08-14] MEDS: Eptifibatide 0.75 mg/ml 75 MG/100 ML BOTTLE IV SCH (00:45)
[2018-08-14 07:16] LABS: BASO # 0.01 K/mm3 (0.0-2.0); BASO % 0.2 % (0.0-3.0); EOS % 0.2 % (1.5-5.0); HEMOGLOBIN 12.8 g/dL (14.0-18.0); LYMPH # 1.1 (1.2-3.4); LYMPH % 20.8 % (22.0-35.0); MEAN CORPUSCULAR HEMOGLOBIN 30.8 pg (25.0-35.0); MEAN PLATELET VOLUME 10.1 fl (7.0-11.0); MONO # 0.6 (0.1-0.6); MONO % 10.9 % (1.0-6.0); RBC 4.16 10^6/uL (3.5-6.1); RED CELL DISTRIBUTION WIDTH 12.6 % (11.5-14.5); WHITE BLOOD COUNT 5.4 10^3/uL (4.5-11.0)
[2018-08-14 08:01] LABS: ALB/GLOB RATIO 1.4 (1.1-1.8); ALBUMIN 3.4 g/dL (3.0-4.8); ALT/SGPT 128 U/L (7-56); AST/SGOT 129 U/L (17-59); CALCIUM 8.3 mg/dL (8.4-10.5); GFR NON-AFRICAN AMERICAN > 60; TROPONIN I 9.21 ng/mL
[2018-08-14 08:25] LABS: BLOOD UREA NITROGEN 19 mg/dL (7-21)
[2018-08-14 08:31] LABS: CK-MB 6.9 ng/mL (0.0-3.6)
[2018-08-14] MEDS: POLYETHYLENE GLYCOL 3350 17 GM/Dose PACKET PO SCH ×2 (09:16→17:25)
--- NOTE | 2018-08-14 11:14 | CP.PCM.PN ---
<Low Alvarez - Last Filed: 08/14/18 11:56> Subjective - Date & Time of Evaluation Date of Evaluation: 08/14/18 Time of Evaluation: 09:00 - Subjective Subjective: PGY5 GI Follow-up Pt seen and examined bedside Denies any abd pain Denies any nausea, vomiting or dirrhea +BM tolerating diet ROS: 12 point ROS conducted, neg other than above Objective - Vital Signs/Intake and Output Vital Signs (last 24 hours): Temp Pulse Resp BP Pulse Ox 98.7 F 71 24 116/60 97 08/14/18 08:00 08/14/18 10:20 08/14/18 10:20 08/14/18 10:01 08/14/18 10:20 Intake and Output: 08/14/18 08/14/18 06:59 18:59 Intake Total 844 360 Output Total 520 Balance 324 360 - Medications Medications: Current Medications Aspirin (Aspirin Chewable) 81 mg PO DAILY [facility] Last Admin: 08/14/18 09:17 Dose: 81 mg Atorvastatin Calcium (Lipitor) 20 mg PO DIN [facility] Last Admin: 08/13/18 17:26 Dose: 20 mg Carvedilol (Coreg) 3.125 mg PO BID [facility] Last Admin: 08/14/18 09:17 Dose: 3.125 mg Clopidogrel Bisulfate (Plavix) 75 mg PO DAILY [facility] Last Admin: 08/14/18 09:17 Dose: 75 mg Lisinopril (Zestril) 2.5 mg PO DAILY [facility] Last Admin: 08/14/18 09:17 Dose: 2.5 mg Nystatin (Nystop Topical Powder) 0 gm TOP Q12H [facility] Last Admin: 08/13/18 14:15 Dose: 1 applic Ondansetron HCl (Zofran Inj) 4 mg IVP Q6H PRN PRN Reason: Nausea/Vomiting Last Admin: 08/13/18 06:35 Dose: 4 mg Oxycodone/Acetaminophen (Percocet 5/325 Mg Tab) 1 tab PO Q4H PRN PRN Reason: Pain, moderate (4-7) Stop: 08/15/18 13:43 Pantoprazole Sodium (Protonix Inj) 40 mg IVP DAILY [facility] Last Admin: 08/14/18 09:16 Dose: 40 mg Polyethylene Glycol (Miralax) 17 gm PO BID [facility] Last Admin: 08/14/18 09:16 Dose: 17 gm - Labs Labs: 08/14/18 05:40 08/14/18 05:40 PT 12.6 SECONDS (9.4-12.5) H 08/12/18 15:50 INR 1.14 08/12/18 15:50 APTT 47.2 Seconds (26.9-38.3) H 08/13/18 08:41 - Constitutional Appears: Well, No Acute Distress - Head Exam Head Exam: ATRAUMATIC, NORMOCEPHALIC - Eye Exam Eye Exam: Normal appearance - ENT Exam ENT Exam: Mucous Membranes Moist, Normal Exam - Neck Exam Neck Exam: Normal Inspection - Respiratory Exam Respiratory Exam: Clear to Ausculation Bilateral, NORMAL BREATHING PATTERN. absent: Rales, Rhonchi, Wheezes, Respiratory Distress - Cardiovascular Exam Cardiovascular Exam: REGULAR RHYTHM, +S1, +S2 - GI/Abdominal Exam GI & Abdominal Exam: Soft, Normal Bowel Sounds. absent: Distended, Guarding, Rigid, Tenderness, Hernia, Mass, Organomegaly, Rebound - Extremities Exam Extremities Exam: absent: Joint Swelling, Pedal Edema - Neurological Exam Neurological Exam: Alert, Awake, Oriented x3 - Psychiatric Exam Psychiatric exam: Normal Affect, Normal Mood - Skin Skin Exam: Dry, Intact, Normal Color, Warm Assessment and Plan - Assessment and Plan (Free Text) Assessment: Marisel Hinojosa is a 57M w/ hx of gastritis who came to the ER with abd and chest pain Atypical Abd pain, etiology likely 2/2 ACS Chest Pain 2/2 ACS Total RCA Stenosis hx of gastritis Plan: -continue ASA, Plavix, heparin as per cardiology. -no indication for GI procedure at this time -continue PPI, Protonix 40mg daily -Continue to monitor hgb -will eventually benefit from oupt EGD D/W Dr. Crocker <Lizzette,Kolokesh V - Last Filed: 08/14/18 22:08> Objective - Vital Signs/Intake and Output Vital Signs (last 24 hours): Temp Pulse Resp BP Pulse Ox 97.7 F 77 14 97/63 L 95 08/14/18 19:00 08/14/18 18:10 08/14/18 18:10 08/14/18 18:00 08/14/18 18:00 Intake and Output: 08/14/18 08/15/18 18:59 06:59 Intake Total 900 Output Total 600 Balance 300 - Medications Medications: Current Medications Aspirin (Aspirin Chewable) 81 mg PO DAILY [facility] Last Admin: 08/14/18 09:17 Dose: 81 mg Atorvastatin Calcium (Lipitor) 20 mg PO DIN [facility] Last Admin: 08/14/18 17:24 Dose: 20 mg Carvedilol (Coreg) 3.125 mg PO BID [facility] Last Admin: 08/14/18 17:27 Dose: Not Given Clopidogrel Bisulfate (Plavix) 75 mg PO DAILY [facility] Last Admin: 08/14/18 09:17 Dose: 75 mg Lisinopril (Zestril) 2.5 mg PO DAILY [facility] Last Admin: 08/14/18 09:17 Dose: 2.5 mg Nystatin (Nystop Topical Powder) 0 gm TOP Q12 [facility] Ondansetron HCl (Zofran Inj) 4 mg IVP Q6H PRN PRN Reason: Nausea/Vomiting Last Admin: 08/13/18 06:35 Dose: 4 mg Oxycodone/Acetaminophen (Percocet 5/325 Mg Tab) 1 tab PO Q4H PRN PRN Reason: Pain, moderate (4-7) Stop: 08/15/18 13:43 Pantoprazole Sodium (Protonix Ec Tab) 40 mg PO ACB [facility] Polyethylene Glycol (Miralax) 17 gm PO BID [facility] Last Admin: 08/14/18 17:25 Dose: Not Given - Labs Labs: 08/14/18 05:40 08/14/18 05:40 PT 12.6 SECONDS (9.4-12.5) H 08/12/18 15:50 INR 1.14 08/12/18 15:50 APTT 47.2 Seconds (26.9-38.3) H 08/13/18 08:41 Attending/Attestation - Attestation I have personally seen and examined this patient.: Yes I have fully participated in the care of the patient.: Yes I have reviewed all pertinent clinical information, including history, physical exam and plan: Yes Notes (Text): This is an addendum to GI progress report dictated by the GI Fellow. The patient was seen and examined earlier. Medical records, lab studies, imagings were reviewed. Last 24 hours events reviewed. Agreed with the above treatment plan as outlined in GI Fellow 's notes with the addition of the following 08/14/18 22:06
--- NOTE | 2018-08-14 13:01 | PN ---
DATE: 08/14/2018 REASON FOR CONSULTATION AND FOLLOWUP: Wgl-HG-nmxprzl myocardial infarction; admitted with abdominal pain, is status post PTCA of totally occluded proximal RCA. SUBJECTIVE: The patient denies any chest pain, shortness of breath, or any palpitation. Denies any nausea or vomiting. Denies any abdominal pain, except for very mild left upper quadrant pain. Much significantly improved from before. OBJECTIVE: GENERAL: Not in apparent distress, lying flat, happy that he had heart fixed. VITAL SIGNS: Temperature afebrile, heart rate 74, and blood pressure 118/69. HEENT: PERRLA. Extraocular muscles intact. NECK: Supple. No carotid bruit or thyromegaly. CHEST: Clear to auscultation. HEART: S1 and S2 regular. ABDOMEN: Soft. EXTREMITIES: Clubbing and cyanosis negative. LABORATORY DATA: Blood workup; WBC 5.4, hemoglobin 12.8, hematocrit 36.6, and platelet count 57. Chemistry shows sodium 135, potassium 4.9, chloride 106, carbon dioxide 28, anion gap of 7, BUN 19, and creatinine 0.8. Troponin came down to 9.21. Total CPK peek to 791, now 353, MB fraction 2. AST 129, ALT 128. Magnesium 2.1, calcium 8.3, phosphorus 2.6, total protein 5.9, albumin 3.4, albumin-globulin ratio 1.4. He had lipid profile done yesterday that shows triglycerides 118, cholesterol 125, LDL 63, HDL 47, TSH 0.38. He had echocardiography done yesterday, I read last night that revealed normal chamber size ejection fraction 45% to 50% [id number]-ww-[id number] hypokinesis of the mid inferolateral wall, [id number]-rz-nklmajah mitral regurgitation, trace mild tricuspid regurgitation, RV systolic pressure 26. He is status post STEMI, he is status post PTCA totally occluded RCA, echo was done after PTCA. IMPRESSION: A 57-year-old male with past medical history of gastritis, who initially admitted with abdominal pain. CAT scan was negative. The patient was about to be discharged, but later troponin came positive, the patient was kept. Later on the patient was started on Heparin and yesterday the patient underwent cardiac catheterization that revealed totally occluded right coronary artery. pulling of the clot and angioplasty of right coronary artery and since the patient have history of idiopathic thrombocytopenic purpura also, so started with holding parameter of old platelet 50,000, but last platelet was 51,000, so continued at 5:00 a.m. He spoke to Dr. Goss, the patient has baseline between 50 and 60. Before going to the animal laboratory helper, the patient also got single donor platelet. Now the patient had percutaneous transluminal coronary angioplasty with bare metal stent. RECOMMENDATIONS: Continue aspirin, Plavix, mandatory for 4 weeks if he can tolerate, can be continued up to 1 year, but mandatory for 1 year. In addition, we will start Coreg 3.125 mg twice a day, lisinopril 2.5 mg daily, and continue atorvastatin. Okay to transfer to telemetry and possible discharge planning. We will follow. Thank you Dr. Nina for providing us the opportunity in taking care of the patient, Ashish Joiner. Amarilys Clarke MD
--- NOTE | 2018-08-14 14:01 | PN ---
DATE: 08/13/2018 SUBJECTIVE: A 57-year-old male, yesterday seen in ICU status post PCI angioplasty with 100% occlusion and status post stent placement by Dr. Clarke and the patient tolerated the procedures well and the patient had and he had one right coronary artery was included and stented and did very well mild disease, there is mildly decreased LV function. PHYSICAL EXAMINATION: GENERAL: The patient is alert, awake, and oriented x3. VITAL SIGNS: Temperature 98, heart rate 65, blood pressure 118/62, and respiratory rate 25. HEENT AND NECK: Head and neck exam normal. No JVD. No thyromegaly. CHEST: Clear and bilateral. CARDIAC: First sound and second sound normal. No murmur, rub, or gallop. ABDOMEN: Soft and nontender. EXTREMITIES: No edema. NEUROLOGIC: Normal. LABORATORY DATA: White count is 4.8, hemoglobin 12, hematocrit 34.6, and platelets was 51. Chemistry; sodium 138, potassium 4.4, chloride 106, bicarb 27, BUN 21, creatinine 0.9, and meningism 2.4. The patient had CPK 791, his troponin went up high up to 21 and 20. The patient's laboratory also had an echocardiogram, still pending. IMPRESSION AND PLAN: 1. Non-ST elevation myocardial infarction, right coronary artery occlusion status post stenting. We will continue current therapy. The patient has been given the following; Plavix 75 mg once a day, he was given Lipitor 20 mg at bedtime, Coreg 3.125 mg two times a day, and baby aspirin 81 mg we will continue that, also for dxxgbuzcyay-rdtwppjtgo-xujvoy inhibitors Zestril 2.5 mg once a day. We will continue current therapy. We will followup clinically. 2. Thrombocytopenia idiopathic thrombocytopenic purpura, seen by residential leasing agent as outpatient. We will continue current therapy. We will monitor the patient clinically. He seems stable. Tim Nina MD
[2018-08-14] MEDS: Nystatin 100,000 Units/gm Topical Pow(15 gm) TOP SCH ×2 (14:12→22:11)
--- NOTE | 2018-08-14 19:36 | CON ---
DATE: 08/14/2018 HEMATOLOGY CONSULTATION HISTORY OF PRESENT ILLNESS: This is a 57-year-old man with thrombocytopenia, who comes in for an acute [place]. PHYSICAL EXAMINATION: SKIN: No petechiae. No bruises. HEENT: Anicteric. NODES: Nonpalpable in the axillary, cervical, supraclavicular or inguinal regions. LUNGS: Clear at present. No vertebral tenderness. HEART: S1 and S2. ABDOMEN: Shows no liver, no spleen, no tenderness, no rebound, no ascites. EXTREMITIES: No edema. CENTRAL NERVOUS SYSTEM: No focal finding. ASSESSMENT AND PLAN: The patient came in for right coronary artery occlusion. He was found to have a platelet count of between 50 and 60. The peripheral smear does not show schistocytes or helmet cells or abnormal lymphocytes. The patient was seen by me about five years ago for the workup of the thrombocytopenia and had at that point some giant platelets, so we would just follow him. This is not an idiopathic thrombocytopenic purpura. He follows up with Dr. Nina, who is an disease intervention specialist, and gets the blood count done about every six months for the last five years, and he tells me it has always been between about 50 and 80. I recommended that they give him the platelet transfusion prior to the procedure, but that at this point he is on Plavix and aspirin, has a metal device in his coronary, and he can be treated like anyone else. In other words, he can take aspirin; he can take Coumadin and Eliquis; he can take Plavix. His platelet count function has a normal function even though the numbers are less. Jagjit Goss MD
--- NOTE | 2018-08-14 22:32 | CARD ---
APPROVED REPORT Date of service: 08/14/2018 EKG Measurement Heart [id number] <Conclusion> Normal sinus rhythm Inferior infarct, age undetermined NDSTT abnormalities Abnormal ECG
--- NOTE | 2018-08-14 22:54 | CARD ---
APPROVED REPORT Date of service: 08/14/2018 INDICATION NSTEMI,HYPOTENSIVE, EVALAUTE LV AND RV EF% PROCEDURE The above named patient recieved 23.2 millicuries of Tc99m tagged red blood cells intravenously. After achieving equilibrium, gated imaging of 16/frame/cycle was performed utillizing Gamma camera interfaced with a digital computer and gated device. Gated imaging was then performed in the left anterior oblique, anterior, and the left lateral projections. Findings Calculated LV Ejection Fraction is 68%. Impressions Calculated Ejection Fraction is 68 %.
[2018-08-15 06:56] LABS: BASO # 0.01 K/mm3 (0.0-2.0); BASO % 0.2 % (0.0-3.0); EOS % 0.7 % (1.5-5.0); HEMOGLOBIN 12.6 g/dL (14.0-18.0); LYMPH # 1.3 (1.2-3.4); LYMPH % 24.5 % (22.0-35.0); MEAN CELL VOLUME 87.5 fl (80.0-105.0); MEAN CORPUSCULAR HEMOGLOBIN 30.3 pg (25.0-35.0); MEAN CORPUSCULAR HGB CONC 34.6 g/dl (31.0-37.0); MEAN PLATELET VOLUME 9.7 fl (7.0-11.0); MONO # 0.6 (0.1-0.6); MONO % 11.8 % (1.0-6.0); RBC 4.16 10^6/uL (3.5-6.1); RED CELL DISTRIBUTION WIDTH 12.4 % (11.5-14.5); WHITE BLOOD COUNT 5.4 10^3/uL (4.5-11.0)
[2018-08-15 07:20] LABS: ALB/GLOB RATIO 1.2 (1.1-1.8); ALBUMIN 3.5 g/dL (3.0-4.8); ALT/SGPT 128 U/L (7-56); AST/SGOT 67 U/L (17-59); BLOOD UREA NITROGEN 18 mg/dL (7-21); CALCIUM 8.5 mg/dL (8.4-10.5); GFR NON-AFRICAN AMERICAN > 60
[2018-08-15] MEDS ORDERED: Pantoprazole 40 mg EC Tab PO SCH (07:30)
[2018-08-15 07:39] VITALS: O2SAT 94
[2018-08-15 07:45] LABS: TROPONIN I 5.63 ng/mL
[2018-08-15] MEDS: POLYETHYLENE GLYCOL 3350 17 GM/Dose PACKET PO SCH (09:12)
[2018-08-15] MEDS: Nystatin 100,000 Units/gm Topical Pow(15 gm) TOP SCH ×2 (09:14→11:47)
[2018-08-15 12:16] VITALS: BP 104/74; PULSE 73; RESP 18; TEMP 98.5
--- NOTE | 2018-08-15 14:55 | PN ---
DATE: 08/15/2018 REASON FOR CONSULTATION AND FOLLOWUP: Dsb-UV-hgwynth myocardial infarction, admitted with abdominal pain, totally occluded RCA, status post PTCA with bare-metal stent of RCA, history of idiopathic thrombocytopenic purpura with baseline platelet in the 50,000. SUBJECTIVE: The patient denies any chest pain, shortness of breath, or any palpitation. OBJECTIVE: GENERAL: Not in apparent distress, lying flat in the bed, awaiting to go to the telemetry. VITAL SIGNS: Temperature afebrile, heart rate 92, and blood pressure 119/72. HEENT: PERRLA. Extraocular muscles intact. NECK: Supple. No carotid bruit or thyromegaly. CHEST: Clear to auscultation. HEART: S1 and S2 regular. ABDOMEN: Soft. EXTREMITIES: Clubbing and cyanosis negative. LABORATORY DATA: Blood workup as follows: WBC 5.4, hemoglobin 12.6, hematocrit 36.4, and platelet count 61. Chemistry shows sodium 135, potassium 3.9, chloride 102, carbon dioxide 30, anion gap of 8, BUN 18, and creatinine 0.8. Troponin came down to 5.63. EKG yesterday normal sinus, inferior wall PR of undetermined age. The patient had a MUGA scan done yesterday that shows ejection fraction 68%, significantly improved. IMPRESSION: A 57-year-old male with past medical history of gastritis, admitted with abdominal pain, found to be non-ST elevation myocardial infarction, maximum troponin of 20, underwent emergent cardiac catheterization that revealed totally occluded proximal right coronary artery, history of idiopathic thrombocytopenic purpura, baseline platelet 50. The patient underwent cardiac catheterization and subsequently bare-metal stent in right coronary artery was placed. Bare-metal stent was placed because of idiopathic thrombocytopenic purpura and the patient to continue long-term dual antiplatelet therapy. Ejection fraction at that time was significantly decreased at 35%, but yesterday's MUGA repeated, ejection fraction significantly improved to 68%. RECOMMENDATIONS: Continue baby aspirin, continue Plavix mandatory for 1 month preferably if the patient can tolerate 1 year because of the non-STEMI. Though the patient presented with non-STEMI, it looks like STEMI because of totally RCA was occluded. Continue lisinopril 2.5 mg twice a day. We will change Coreg, initially Coreg was given because of decreased left ventricular function, now changed to metoprolol because the patient has tachycardia, already heart rate is 90 and the LV function improved, so we will change to metoprolol 25 p.o. b.i.d. from today in addition to continue aspirin, continue Plavix, continue lisinopril, continue atorvastatin, and discharge planning. tobacco farmworker for discharge planning. The patient is stable, okay to discharge from cardiology point of view. Follow up as outpatient. Thank you Dr. Nina for providing us the opportunity in taking care of the patient, Marisel Hinojosa. Amarilys Clarke MD
--- NOTE | 2018-08-15 16:04 | CON ---
DATE: 08/15/2018 PULMONARY CONSULT NOTE REFERRING PHYSICIAN: Tim Nina MD REASON FOR CONSULT: Episodes of hypoxemia and suspected sleep apnea syndrome. HISTORY OF PRESENT ILLNESS: This is a 57-year-old male with past medical history significant for thrombocytopenia, history of H. pylori which was treated in the past and gastritis. The patient came in to the emergency room complaining of chest pain and epigastric pain. The patient was admitted for non-ST elevated NC, he is status post PCI angioplasty with 100% occlusion and status post stent placement. Today, the patient sitting up in bed. Reports feeling well today. No coughing, shortness of breath, chest pain, abdominal pain, nausea, vomiting, diarrhea, leg pain or leg swelling reported. The patient reports that he does snore. PAST MEDICAL HISTORY: As per history of present illness. ALLERGIES: NOVALGINE. SOCIAL HISTORY: Nonsmoker. No ETOH abuse. No illicit drug use. MEDICATION: Aspirin 81 mg daily, Lipitor 20 mg at dinner, Plavix 75 mg daily, lisinopril 2.5 mg daily, metoprolol tartrate 25 mg twice a day, nystatin topical powder to affected area every 12 hours, Zofran 4 mg IV push every 6 hours p.r.n., Protonix 40 mg in the morning and MiraLax 17 g twice a day. REVIEW OF SYSTEMS: No headache, rhinitis, chest pain, abdominal pain, nausea, vomiting, diarrhea, leg pain and leg swelling reported. The patient does report that he snores at night and some day time sleepiness. PHYSICAL EXAMINATION: GENERAL: No acute distress. VITAL SIGNS: Blood pressure 104/74, pulse 73, temperature 98.5 and oxygen saturation 94% on nasal cannula. HEENT: Moist mucous membranes. Mallampati score of 4. Crowded airway. NECK: Supple. No JVD. LUNGS: Fair airflow bilaterally. CARDIOVASCULAR: S1 and S2. ABDOMEN: Soft and nontender. No distention. No organomegaly. EXTREMITIES: No bilateral lower extremity edema. NEUROLOGIC: Awake, alert and verbal. Follows commands. LABORATORY DATA: Reviewed. WBC 5.4, RBC 4.16, hemoglobin 12.6, hematocrit 36.4 and platelets 61. Sodium 136, potassium 3.9, chloride 102, carbon dioxide 30, anion gap 8, BUN 18, creatinine 0.8, GFR is greater than 60, random glucose 121, calcium 8.5, phosphorous 3.0, magnesium 2.0, total bilirubin 1.2, AST 67, ALT 128, alkaline phosphatase 68, lactate dehydrogenase 812, total creatine kinase 138, troponin 5.63, total protein 6.4, albumin 3.5, globulin 2.9 and, albumin-globulin ratio 1.2. MRSA culture negative. EKG shows normal sinus rhythm, inferior infarct and abnormalities. MUGA scan shows calculated ejection fraction 68%. Echocardiogram shows ejection fraction 45% to 50%, RVSP 26, status post NSTEMI, status post PTCA of totally occluded RCA. Venous Doppler bilateral no evidence of DVT. Chest CT shows no pulmonary embolism. IMPRESSION AND PLAN: Non-ST elevation myocardial infarction, right coronary artery occlusion status post stenting, history of thrombocytopenia, history of gastritis, suspected sleep apnea syndrome. Continue gastric prophylaxis. Cardiology followup. We recommend the patient has attended sleep study as outpatient to rule out obstructive sleep apnea syndrome. Discussed with the patient at bedside in-depth. Sleep apnea precaution. Head of bed elevated at 45 degrees. Avoid nocturnal sedation. This patient was seen and examined with Dr. Ashraf. Discussed assessment and plan as described above. This patient was seen and examined with See Gonzalez, nurse practitioner. Discussed assessment and plan as described above. Thank you for this consult. We will follow with you. See Gonzalez APN Amarilys Ashraf MD
--- NOTE | 2018-08-15 21:56 | DS ---
HISTORY OF PRESENT ILLNESS: The patient came and was admitted with epigastric discomfort radiating to his chest. Repeat troponin while on observation shows positive troponin. The patient was seen by Cardiology initially Dr. Vera and Dr. Clarke. He was given aspirin and beta-blockers. Cardiac cath was done and stent placement for 100% RCA occlusion. The patient had a MUGA scan which showed ejection fraction of 68%. The patient has been walking around, has no chest pain. He moves around, goes to the bathroom. No complaints and seems doing well. The patient was seen by Cardiology consult Dr. Clarke. Pulmonary, Dr. Ashraf and GI, Dr. Crocker as the case was due to cardiac etiology of epigastric pain. He was not tender in the epigastric area. He seems doing well. DISCHARGE PHYSICAL EXAMINATION: VITAL SIGNS: Temperature 98, heart rate 78, blood pressure 119/92 and saturating 94%. HEAD AND NECK: Normal. No JVD. No thyromegaly. CHEST: Clear bilaterally. CARDIAC: First sound and second sound normal. ABDOMEN: Soft and nontender. EXTREMITIES: No edema. NEUROLOGIC: Normal. LABORATORY DATA: Sodium 136, potassium 3.9, chloride 102, bicarb 30, BUN 18, and creatinine 0.8. Liver function test slightly elevated and AST and ALT with normal alk phos and elevated and it seems going down probably due to cardiac etiology. The patient had venous Doppler of both lower extremities that was normal. The patient clinically seems doing well. No chest pain. No shortness of breath. Plan to discharge the patient home and followup as outpatient. DISCHARGE DIAGNOSES: 1. Acute isp-IT-deamtuxtl myocardial infarction. 2. Thrombocytopenia. 3. Abnormal liver function test, could be medication related. We will get testing for that, we will do that as outpatient. We will work up for repeat liver function test as an outpatient. 4. Gastritis. Continue his acid medication, Protonix. DISCHARGE MEDICATIONS: We will discharge the patient on Plavix 75, aspirin 81 mg, Lipitor 20 mg and beta-marce metoprolol 25 mg b.i.d. DISCHARGE INSTRUCTIONS: Follow up in the office within a week. Tim Nina MD [facility] # [id number]
--- NOTE | 2018-08-15 23:47 | CARD ---
APPROVED REPORT Date of service: 08/15/2018 EKG Measurement Heart [id number] <Conclusion> Normal sinus rhythm Probable Inferior infarct, age undetermined Abnormal ECG
== END 2018-08-15 14:51 | disposition home or self-care (01) | DRG 550 ==
LOC: ED 09:29 → ERH 10:04 → 5RSO 11:18 → 2RNO 17:22 → OBSVTOIN 18:00 → CCU 08-13 05:03 → INTOOBSV 08-13 05:03 → OBSVTOIN 08-13 05:03 → 2RNO 08-15 09:46
PROVIDERS: ADMIT Internal Medicine; ATTEND Internal Medicine
PROC: 02703DZ Dilation of Coronary Artery, One Artery with Intraluminal Device, Percutaneous Approach (ICD-10-PCS; principal; 2018-08-13)
PROC: 4A023N7 Measurement of Cardiac Sampling and Pressure, Left Heart, Percutaneous Approach (ICD-10-PCS; 2018-08-13)
PROC: B2151ZZ Fluoroscopy of Left Heart using Low Osmolar Contrast (ICD-10-PCS; 2018-08-13)
PROC: B2111ZZ Fluoroscopy of Multiple Coronary Arteries using Low Osmolar Contrast (ICD-10-PCS; 2018-08-13)
PROC: 3E033PZ Introduction of Platelet Inhibitor into Peripheral Vein, Percutaneous Approach (ICD-10-PCS; 2018-08-13)
PROC: 30233R1 Transfusion of Nonautologous Platelets into Peripheral Vein, Percutaneous Approach (ICD-10-PCS; 2018-08-13)
DX: I21.4 Non-ST elevation (NSTEMI) myocardial infarction (principal); R57.0 Cardiogenic shock; D69.3 Immune thrombocytopenic purpura; I08.1 Rheumatic disorders of both mitral and tricuspid valves; I25.110 Atherosclerotic heart disease of native coronary artery with unstable angina pectoris; I21.11 ST elevation (STEMI) myocardial infarction involving right coronary artery; I25.5 Ischemic cardiomyopathy; E78.5 Hyperlipidemia, unspecified; K21.9 Gastro-esophageal reflux disease without esophagitis; K29.70 Gastritis, unspecified, without bleeding; E66.9 Obesity, unspecified; Z68.30 Body mass index [BMI] 30.0-30.9, adult